=== PATIENT | female | born 1950 | race Caucasian/White ===

== ENCOUNTER 2018-01-30 20:05 | Emergency (ER) | payer MEDICARE, MEDICAID ==
[2018-01-30 20:20] VITALS: BP 127/53
[2018-01-30] MEDS ORDERED: Ondansetron 4 MG/2 ML SDV IVPUSH ONE (20:31)
--- NOTE | 2018-01-30 20:38 | EDM.PDOC ---
ED HPI GENERAL MEDICAL PROBLEM - General Chief Complaint: Gastrointestinal Problem Stated Complaint: VOMMITING BLOOD Time Seen by Provider: 01/30/18 20:21 Source of Information: Reports: Patient, Other ([place] caregiver) History Limitations: Reports: Physical Impairment (Cognitive impairment) - History of Present Illness INITIAL COMMENTS - FREE TEXT/NARRATIVE: The patient states that she has had 5 episodes of emesis today, beginning at 16: 30. Initially, there was no blood in the emesis, but later emesis had blood in it. She denies having any associated diarrhea. No abdominal pain. No chest pain , dyspnea, diaphoresis, or sense of impending doom. The patient has no other complaints. The patient denies similarly ill close contacts. No recent bad food. The patient is not on any antibiotics. No recent travel. No prior similar symptoms. The patient has not tried any home remedies for her symptoms today. The patient has a mechanical mitral valve replacement, and is on Coumadin. The patient's PCP is Dr. Patel. Right Upper Abdomen Pain Score (Numeric/FACES): 4 - Related Data Allergies Allergy/AdvReac Type Severity Reaction Status Date / Time No Known Allergies Allergy Verified 01/30/18 20:14 Home Meds: Home Meds Alendronate [Fosamax] 70 mg PO TH 06/26/15 [History] Carboxymethylcellulose Sodium [Refresh Plus 0.5%] 1 each OP BEDTIME 06/26/15 [ History] ClonazePAM [KlonoPIN] 1 mg PO QID 06/26/15 [History] Digoxin 125 mcg PO DAILY 06/26/15 [History] Enalapril [Vasotec] 2.5 mg PO DAILY 06/26/15 [History] Fluticasone [place]/ 50 Mcg. 2 spray IN DAILY 06/26/15 [History] Hydrocortisone [Hydrocortisone 1% Crm] 1 applic TOP DAILY 06/26/15 [History] Metronidazole Gel 0.075% . 1 applic TOP BID PRN 06/26/15 [History] Mineral Oil/Petrolatum,White [Refresh P.M.] 3.5 gm OP BEDTIME 06/26/15 [History] Multivit-Min/FA/Lycopene/Lut [Certavite Sr-Antioxidant Tab] 1 tab PO DAILY 06/26 [History] Sertraline [Zoloft] 100 mg PO DAILY 06/26/15 [History] Warfarin Sodium [Jantoven] 2.5 mg PO SUTUWETHSA 06/26/15 [History] Warfarin Sodium [Jantoven] 3.75 mg PO MOFR 06/26/15 [History] atorvaSTATin [Lipitor] 10 mg PO DAILY 06/26/15 [History] lamoTRIgine 25 mg PO BID 06/26/15 [History] risperiDONE 0.5 tab PO DAILY 06/26/15 [History] risperiDONE 2 mg PO BEDTIME 06/26/15 [History] Aspirin [Halfprin] 81 mg PO BRK 30 Days tab.ec 06/27/15 [Rx] Simvastatin [Zocor] 10 mg PO BEDTIME #30 tab 06/27/15 [Rx] Nitrofurantoin Monohyd/M-Cryst [Macrobid 100 mg Capsule] 1 cap PO Q12H #9 capsule 01/30/18 [Rx] Ondansetron [Zofran ODT] 1 tab PO Q8H PRN #10 tab.dis 01/30/18 [Rx] Past Medical History HEENT History: Reports: Hard of Hearing, Impaired Vision Cardiovascular History: Reports: High Cholesterol, Hypertension Musculoskeletal History: Reports: Osteoporosis Psychiatric History: Reports: Anxiety, Depression, Other (See Below) (Paranoia) - Past Surgical History Cardiovascular Surgical History: Reports: Valve Replacement (mechanical mitral) Social & Family History - Tobacco Use Smoking Status *Q: Never Smoker Second Hand Smoke Exposure: No - Caffeine Use Caffeine Use: Reports: None - Alcohol Use Alcohol Use History: No - Recreational Drug Use Recreational Drug Use: No - Living Situation & Occupation Living situation: Reports: , Other ([facility]) ED ROS GENERAL - Review of Systems Review Of Systems: ROS reveals no pertinent complaints other than HPI. ED EXAM, GI/ABD - Physical Exam Exam: See Below Exam Limited By: No Limitations General Appearance: Alert, WD/WN, No Apparent Distress Eyes: Bilateral: Normal Appearance, EOMI Ears: Normal External Exam, Hearing Grossly Normal Nose: Normal Inspection, No Blood Throat/Mouth: Normal Inspection, Normal Lips, Normal Voice, No Airway Compromise Head: Atraumatic, Normocephalic Neck: Normal Inspection, Full Range of Motion Respiratory/Chest: No Respiratory Distress, Lungs Clear, Normal Breath Sounds, No Accessory Muscle Use Cardiovascular: Normal Peripheral Pulses, Regular Rate, Rhythm, No Edema, No Gallop, No JVD, No Murmur, No Rub GI/Abdominal Exam: Normal Bowel Sounds, Soft, Non-Tender, No Organomegaly, No Distention, No Abnormal Bruit, No Mass (Female) Exam: Deferred Rectal (Female) Exam: Deferred Back Exam: Normal Inspection, Full Range of Motion, NT Extremities: Normal Range of Motion, Non-Tender, Normal Capillary Refill, Other (Scar on the dorsolateral aspect of the left foot representing a well-healed ulcer) Neurological: Alert, No Motor/Sensory Deficits, Confused Psychiatric: Normal Affect Skin Exam: Warm, Dry, Intact, Normal Color, No Rash EKG INTERPRETATION EKG Date: 01/30/18 Time: 20:52 Rhythm: NSR Rate (Beats/Min): 81 [place]: Normal P-Wave: Present QRS: Normal ST-T: Normal QT: Normal Comparison: No Change (06/26/2015) Course - Vital Signs Last Recorded V/S: Last Vital Signs Temp 36.2 C 01/30/18 20:18 Pulse 86 01/30/18 20:18 Resp 16 01/30/18 20:18 BP 127/53 L 01/30/18 20:18 Pulse Ox 93 L 01/30/18 20:18 Orthostatic Blood Pressure [ 124/60 Standing] Orthostatic Blood Pressure [ 130/61 Sitting] Orthostatic Blood Pressure [ 124/63 Supine] - Orders/Labs/Meds Orders: Active Orders 24 hr Category Date Time Status EKG Documentation Completion [RC] STAT Care 01/30/18 20:31 Active Orthostatic Vital Signs [RC] STAT Care 01/30/18 20:31 Active Orthostatic Vital Signs [RC] STAT Care 01/30/18 21:36 Active CULTURE URINE [RM] Stat Lab 01/30/18 21:00 Received UA W/MICROSCOPIC [URIN] Stat Lab 01/30/18 21:00 Ordered Sodium Chloride 0.9% [Normal Saline] 1,000 ml Med 01/30/18 20:45 Active IV ASDIRECTED Medication Orders Sodium Chloride (Normal Saline) 1,000 mls @ 100 mls/hr IV ASDIRECTED FABRICE Last Admin: 01/30/18 20:45 Dose: 100 mls/hr Labs: Laboratory Tests 01/30/18 01/30/18 01/30/18 Range/Units 20:40 20:40 20:40 WBC 14.78 H (3.98-10.04) K/mm3 RBC 4.24 (3.98-5.22) M/mm3 Hgb 12.4 (11.2-15.7) gm/L Hct 37.9 (34.1-44.9) % MCV 89.4 (79.4-94.8) fl MCH 29.2 (25.6-32.2) pg MCHC 32.7 (32.2-35.5) g/dl RDW Std Deviation 42.1 (36.4-46.3) fL Plt Count 194 (182-369) K/mm3 MPV 10.0 (9.4-12.3) fl Neutrophils % (Manual) 93 H (40-60) % Band Neutrophils % 0 (0-10) % Lymphocytes % (Manual) 2 L (20-40) % Atypical Lymphs % 0 % Monocytes % (Manual) 5 (2-10) % Eosinophils % (Manual) 0 L (0.7-5.8) % Basophils % (Manual) 0 L (0.1-1.2) Platelet Estimate Adequate Plt Morphology Comment Normal RBC Morph Comment Normal PT 38.5 H (9.5-12.1) SECONDS INR 3.62 Sodium 141 (136-145) mEq/L Potassium 3.7 (3.5-5.1) mEq/L Chloride 105 (98-107) mEq/L Carbon Dioxide 26 (21-32) mEq/L Anion Gap 13.7 (5-15) BUN 18 (7-18) mg/dL Creatinine 1.1 H (0.55-1.02) mg/dL Est Cr Clr Drug Dosing 39.79 mL/min Estimated GFR (MDRD) 50 (>60) mL/min BUN/Creatinine Ratio 16.4 (14-18) Glucose 158 H (80-115) mg/dL Calcium 9.2 (8.5-10.1) mg/dL Magnesium 1.8 (1.8-2.4) mg/dl Total Bilirubin 1.0 (0.2-1.0) mg/dL AST 19 (15-37) U/L ALT 22 (14-59) U/L Alkaline Phosphatase 43 L (46-116) U/L Troponin I < 0.017 (0.00-0.056) ng/mL Total Protein 7.8 (6.4-8.2) g/dl Albumin 3.6 (3.4-5.0) g/dl Globulin 4.2 gm/dL Albumin/Globulin Ratio 0.9 L (1-2) Urine Color (Yellow) Urine Appearance (Clear) Urine pH (5.0-8.0) Ur Specific [place] (1.005-1.030) Urine Protein (Negative) Urine Glucose (UA) (Negative) Urine Ketones (Negative) Urine Occult Blood (Negative) Urine Nitrite (Negative) Urine Bilirubin (Negative) Urine Urobilinogen (0.2-1.0) Ur Leukocyte Esterase (Negative) Urine RBC (0-5) /hpf Urine WBC (0-5) /hpf Urine WBC Clumps (NOT SEEN) /hpf Ur Epithelial Cells (0-5) /hpf Amorphous Sediment (NOT SEEN) /hpf Urine Bacteria (FEW) /hpf Urine Mucus (FEW) /hpf 01/30/18 Range/Units 21:00 WBC (3.98-10.04) K/mm3 RBC (3.98-5.22) M/mm3 Hgb (11.2-15.7) gm/L Hct (34.1-44.9) % MCV (79.4-94.8) fl MCH (25.6-32.2) pg MCHC (32.2-35.5) g/dl RDW Std Deviation (36.4-46.3) fL Plt Count (182-369) K/mm3 MPV (9.4-12.3) fl Neutrophils % (Manual) (40-60) % Band Neutrophils % (0-10) % Lymphocytes % (Manual) (20-40) % Atypical Lymphs % % Monocytes % (Manual) (2-10) % Eosinophils % (Manual) (0.7-5.8) % Basophils % (Manual) (0.1-1.2) Platelet Estimate Plt Morphology Comment RBC Morph Comment PT (9.5-12.1) SECONDS INR Sodium (136-145) mEq/L Potassium (3.5-5.1) mEq/L Chloride (98-107) mEq/L Carbon Dioxide (21-32) mEq/L Anion Gap (5-15) BUN (7-18) mg/dL Creatinine (0.55-1.02) mg/dL Est Cr Clr Drug Dosing mL/min Estimated GFR (MDRD) (>60) mL/min BUN/Creatinine Ratio (14-18) Glucose (80-115) mg/dL Calcium (8.5-10.1) mg/dL Magnesium (1.8-2.4) mg/dl Total Bilirubin (0.2-1.0) mg/dL AST (15-37) U/L ALT (14-59) U/L Alkaline Phosphatase (46-116) U/L Troponin I (0.00-0.056) ng/mL Total Protein (6.4-8.2) g/dl Albumin (3.4-5.0) g/dl Globulin gm/dL Albumin/Globulin Ratio (1-2) Urine Color Dark yellow (Yellow) Urine Appearance Slt cloudy H (Clear) Urine pH 5.5 (5.0-8.0) Ur Specific [place] > or = 1.030 (1.005-1.030) Urine Protein 1+ H (Negative) Urine Glucose (UA) Negative (Negative) Urine Ketones Negative (Negative) Urine Occult Blood 2+ H (Negative) Urine Nitrite Negative (Negative) Urine Bilirubin 1+ H (Negative) Urine Urobilinogen 0.2 (0.2-1.0) Ur Leukocyte Esterase 1+ H (Negative) Urine RBC 10-20 H (0-5) /hpf Urine WBC 30-40 H (0-5) /hpf Urine WBC Clumps Few (NOT SEEN) /hpf Ur Epithelial Cells 0-5 (0-5) /hpf Amorphous Sediment Few H (NOT SEEN) /hpf Urine Bacteria Many H (FEW) /hpf Urine Mucus Few (FEW) /hpf Meds: Medications Generic Name Dose Route Start Last Admin Trade Name Freq PRN Reason Stop Dose Admin Sodium Chloride 1,000 mls @ 100 mls/hr 01/30/18 20:45 01/30/18 20:45 Normal Saline IV 100 mls/hr ASDIRECTED FABRICE Administration Discontinued Medications Generic Name Dose Route Start Last Admin Trade Name Freq PRN Reason Stop Dose Admin Sodium Chloride 500 mls @ 1,000 mls/hr 01/30/18 21:36 Normal Saline IV 01/30/18 22:05 .BOLUS ONE Nitrofurantoin Macrocrystals 100 mg 0506/18 22:12 Macrobid PO 01/30/18 22:13 ONETIME ONE Ondansetron HCl 4 mg 01/30/18 20:31 01/30/18 20:43 Zofran IVPUSH 01/30/18 20:32 4 mg ONETIME ONE Administration - Re-Assessments/Exams Free Text/Narrative Re-Assessment/Exam: 01/30/18 21:35 The patient is orthostatic. I will order a fluid bolus, to be followed by repeat orthostatics. 01/30/18 22:13 Following 500 ml NS bolus, the patient is no longer orthostatic, and is feeling much better. The patient's urinalysis is consistent with a UTI. I have ordered a urine culture and will start the patient on Macrobid. Bactrim is relatively contraindicated, as the patient is on Coumadin. 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 I will prescribe Zofran. The patient's blood sugar was found to be elevated at 158. She likely has prediabetes. I will have her follow-up with Dr. Patel in this regard. Departure - Departure Time of Disposition: 22:25 Disposition: Home, Self-Care 01 Condition: Fair Clinical Impression: Pooja-Louise tear, UTI (urinary tract infection), Nausea & vomiting - Discharge Information Prescriptions: Nitrofurantoin Monohyd/M-Cryst [Macrobid 100 mg Capsule] 1 cap PO Q12H #9 capsule Ondansetron [Zofran ODT] 1 tab PO Q8H PRN #10 tab.dis PRN Reason: Nausea/Vomiting Instructions: Pooja-Louise Syndrome, Urinary Tract Infection, Adult Referrals: Yonatan Patel MD [Primary Care Provider] - Forms: ED Department Discharge Additional Instructions: Ms Colón was seen in the emergency room for 5 episodes of vomiting, with some blood in some of her vomit. Workup in the ER included blood work, a urinalysis, positional blood pressure checks, and an ECG. Her workup found that she was intravascularly depleted, she has a urinary tract infection, and her blood sugar was elevated at 158. Her vomiting is likely because of the urinary tract infection. After being given IV fluid, her blood pressure stabilized. She needs to stay adequately hydrated, going forward. She has been started on the antibiotic Macrobid. A prescription for Macrobid has been sent to the [facility], [address] from [facility]. She should take one tablet every 12 hours, as prescribed. She should finish the entire prescription unless told otherwise by Dr. Patel. A prescription for the anti-nausea medicine Zofran was also sent to the [facility]. She can dissolve 1 tablet on her tongue up to every 8 hours, as needed for nausea/vomiting. She is to follow-up with Dr. Patel on 02/02/2018, to check on her urine culture results, to make sure that she is on the correct antibiotic, and to check on her blood sugar. If any other problems, please do not hesitate to return Ms. Colón to the ER. - My Orders Last 24 Hours: My Active Orders 01/30/18 20:31 EKG Documentation Completion [RC] STAT Orthostatic Vital Signs [RC] STAT 01/30/18 20:45 Sodium Chloride 0.9% [Normal Saline] 1,000 ml IV ASDIRECTED 01/30/18 21:00 CULTURE URINE [RM] Stat UA W/MICROSCOPIC [URIN] Stat 01/30/18 21:36 Orthostatic Vital Signs [RC] STAT - Assessment/Plan Last 24 Hours: My Active Orders 01/30/18 20:31 EKG Documentation Completion [RC] STAT Orthostatic Vital Signs [RC] STAT 01/30/18 20:45 Sodium Chloride 0.9% [Normal Saline] 1,000 ml IV ASDIRECTED 01/30/18 21:00 CULTURE URINE [RM] Stat UA W/MICROSCOPIC [URIN] Stat 01/30/18 21:36 Orthostatic Vital Signs [RC] STAT
[2018-01-30] MEDS ORDERED: Sodium Chloride 0.9% 1,000 ML IV SCH (20:45)
[2018-01-30] MEDS ORDERED: Sodium Chloride 0.9% 500 ML IV ONE (21:36)
[2018-01-30] MEDS ORDERED: Nitrofurantoin Monohydrate/Macrocrystalline 100 MG Cap PO ONE (22:12)
== END 2018-01-30 22:52 | disposition home or self-care (01) ==
LOC: JD.ED 20:05
DX: K22.6 Gastro-esophageal laceration-hemorrhage syndrome (principal); N39.0 Urinary tract infection, site not specified; I10 Essential (primary) hypertension; F41.9 Anxiety disorder, unspecified; F32.9 Major depressive disorder, single episode, unspecified; E78.00 Pure hypercholesterolemia, unspecified; Z79.01 Long term (current) use of anticoagulants; Z79.899 Other long term (current) drug therapy
CPT/HCPCS: 36415; 80053; 81001; 83735; 84484; 85025; 85610; 87086; 87088; 87186; 93005; 96361; 96374; 99284; A9270; J2405; J7040; 93010

== ENCOUNTER 2018-02-07 19:46 | Emergency (ER) | payer MEDICARE, MEDICAID ==
[2018-02-07 20:01] VITALS: BP 113/50
[2018-02-07] MEDS ORDERED: Sodium Chloride 0.9% 10 ML Syringe FLUSH PRN (20:26)
[2018-02-07] MEDS ORDERED: Sodium Chloride 0.9% 1,000 ML IV SCH (20:30)
--- NOTE | 2018-02-07 20:30 | EDM.PDOC ---
ED HPI GENERAL MEDICAL PROBLEM - General Chief Complaint: Gastrointestinal Problem Stated Complaint: BLOOD FROM VAGINAL OR RECTAL AREA Time Seen by Provider: 02/07/18 20:11 Source of Information: Reports: Patient History Limitations: Reports: No Limitations - History of Present Illness INITIAL COMMENTS - FREE TEXT/NARRATIVE: Patient is a 67-year-old female who lives at [facility] with an employee from [employer]. Patient was evaluated January 30, 2018. Diagnosed with orthostatic vital signs administered 500 mL of fluid with resolution. UA came back positive for UTI. In addition she had a few episodes of emesis with blood present. Diagnosed with Pooja-Louise tear. She was prescribed Zofran. INR was 3.62. Since being discharged patient has been taking the Macrobid as prescribed. She continues have episodes of nausea/vomiting. No blood present. Has been using the Zofran intermittently with some relief. With taking the Macrobid she's having increased number of loose stools. Has had a poor appetite. Has at times felt weak with ambulation. This morning had blood saturating her underwear presumably from her rectum. She has no history of hemorrhoids. Denies any pain to her rectum. Denies any pain with urination. She is on Coumadin for mechanical mitral heart valve. She is on digoxin and Halfprin as well. Bilateral Upper Abdomen Pain Score (Numeric/FACES): 1 - Related Data Allergies Allergy/AdvReac Type Severity Reaction Status Date / Time No Known Allergies Allergy Verified 02/07/18 19:56 Home Meds: Home Meds Alendronate [Fosamax] 70 mg PO TH 06/26/15 [History] Carboxymethylcellulose Sodium [Refresh Plus 0.5%] 1 each OP BEDTIME 06/26/15 [ History] ClonazePAM [KlonoPIN] 1 mg PO QID 06/26/15 [History] Digoxin 125 mcg PO DAILY 06/26/15 [History] Enalapril [Vasotec] 2.5 mg PO DAILY 06/26/15 [History] Fluticasone [place]/ 50 Mcg. 2 spray IN DAILY 06/26/15 [History] Hydrocortisone [Hydrocortisone 1% Crm] 1 applic TOP DAILY 06/26/15 [History] Metronidazole Gel 0.075% . 1 applic TOP BID PRN 06/26/15 [History] Mineral Oil/Petrolatum,White [Refresh P.M.] 3.5 gm OP BEDTIME 06/26/15 [History] Multivit-Min/FA/Lycopene/Lut [Certavite Sr-Antioxidant Tab] 1 tab PO DAILY 06/26 [History] Sertraline [Zoloft] 100 mg PO DAILY 06/26/15 [History] Warfarin Sodium [Jantoven] 2.5 mg PO SUTUWETHSA 06/26/15 [History] Warfarin Sodium [Jantoven] 3.75 mg PO MOFR 06/26/15 [History] atorvaSTATin [Lipitor] 10 mg PO DAILY 06/26/15 [History] lamoTRIgine 25 mg PO BID 06/26/15 [History] risperiDONE 0.5 tab PO DAILY 06/26/15 [History] risperiDONE 2 mg PO BEDTIME 06/26/15 [History] Aspirin [Halfprin] 81 mg PO BRK 30 Days tab.ec 06/27/15 [Rx] Simvastatin [Zocor] 10 mg PO BEDTIME #30 tab 06/27/15 [Rx] Nitrofurantoin Monohyd/M-Cryst [Macrobid 100 mg Capsule] 1 cap PO Q12H #9 capsule 01/30/18 [Rx] Ondansetron [Zofran ODT] 1 tab PO Q8H PRN #10 tab.dis 01/30/18 [Rx] Past Medical History HEENT History: Reports: Hard of Hearing, Impaired Vision Cardiovascular History: Reports: High Cholesterol, Hypertension Other Cardiovascular History: Mitral valve replacement Musculoskeletal History: Reports: Osteoporosis Psychiatric History: Reports: Anxiety, Depression, Other (See Below) (Paranoia) Other Psychiatric History: paranoia Other Dermatologic History: ulcer to the left inner ankle, alf Hx Social & Family History - Caffeine Use Caffeine Use: Reports: None - Living Situation & Occupation Living situation: Reports: , Other ([facility]) ED ROS GENERAL - Review of Systems Review Of Systems: See Below Respiratory: Reports: No Symptoms Cardiovascular: Reports: No Symptoms GI/Abdominal: Reports: Abdominal Pain (RLQ), Bloody Stool, Diarrhea, Decreased Appetite, Nausea, Vomiting. Denies: Black Stool, Constipation, Hematemesis, Melena : Reports: No Symptoms Musculoskeletal: Reports: No Symptoms Skin: Reports: No Symptoms Neurological: Reports: No Symptoms Psychiatric: Reports: No Symptoms ED EXAM, GI/ABD - Physical Exam Exam: See Below Exam Limited By: No Limitations General Appearance: Alert, WD/WN, No Apparent Distress Ears: Hearing Grossly Normal Nose: Normal Inspection Throat/Mouth: Normal Inspection, Normal Oropharynx, Normal Voice, No Airway Compromise Neck: Normal Inspection, Supple Respiratory/Chest: No Respiratory Distress, Lungs Clear, Normal Breath Sounds, No Accessory Muscle Use, Chest Non-Tender Cardiovascular: Normal Peripheral Pulses, Regular Rate, Rhythm, Systolic Murmur GI/Abdominal Exam: Normal Bowel Sounds, Soft, No Organomegaly, No Distention, Tender (Along McBurney's point. Negative Doran sign.) Rectal (Female) Exam: Bloody Stool, Heme + Stool. No: Hemorrhoids Back Exam: Normal Inspection. No: CVA Tenderness (L), CVA Tenderness (R) Extremities: Non-Tender, No Pedal Edema Neurological: Alert, Oriented, CN II-XII Intact, Normal Cognition, No Motor/ Sensory Deficits Psychiatric: Normal Affect, Normal Mood Skin Exam: Warm, Dry, Intact, Normal Color Course - Vital Signs Last Recorded V/S: Last Vital Signs Temp 96.5 F 02/07/18 19:57 Pulse 111 H 02/07/18 19:57 Resp 18 02/07/18 19:57 BP 113/50 L 02/07/18 19:57 Pulse Ox 95 02/07/18 19:57 Orthostatic Blood Pressure [ 72/42 Standing] Orthostatic Blood Pressure [ 97/54 Sitting] Orthostatic Blood Pressure [ 103/49 Supine] - Orders/Labs/Meds Orders: Active Orders 24 hr Category Date Time Status EKG 12 Lead [EKG Documentation Completion] [RC] STAT Care 02/07/18 22:19 Active Orthostatic Vital Signs [RC] ASDIRECTED Care 02/07/18 20:33 Active Peripheral IV Care [RC] . DIRECTED Care 02/07/18 20:27 Active Peripheral IV Insertion Adult [OM.PC] Routine Oth 02/07/18 20:26 Ordered Transfuse Fresh Frozen Plasma [COMM] Stat Oth 02/07/18 22:46 Ordered Labs: Laboratory Tests 02/07/18 02/07/18 02/07/18 Range/Units 20:35 20:35 20:35 WBC 12.89 H (3.98-10.04) K/mm3 RBC 3.45 L (3.98-5.22) M/mm3 Hgb 9.9 L (11.2-15.7) gm/L Hct 28.9 L (34.1-44.9) % MCV 83.8 (79.4-94.8) fl MCH 28.7 (25.6-32.2) pg MCHC 34.3 (32.2-35.5) g/dl RDW Std Deviation 39.4 (36.4-46.3) fL Plt Count 287 (182-369) K/mm3 MPV 9.4 (9.4-12.3) fl Neutrophils % (Manual) 83 H (40-60) % Band Neutrophils % 0 (0-10) % Lymphocytes % (Manual) 12 L (20-40) % Atypical Lymphs % 0 % Monocytes % (Manual) 4 (2-10) % Eosinophils % (Manual) 0 L (0.7-5.8) % Basophils % (Manual) 1 (0.1-1.2) Toxic Granulation 2+ moderate Platelet Estimate Adequate Plt Morphology Comment Normal Hypochromasia 1+ slight Poikilocytosis 2+ moderate Anisocytosis 2+ moderate Microcytosis 1+ slight RBC Morph Comment Not Reportable PT (9.5-12.1) SECONDS INR APTT (24-31) SECONDS Sodium 134 L (136-145) mEq/L Potassium 2.3 L* (3.5-5.1) mEq/L Chloride 100 (98-107) mEq/L Carbon Dioxide 23 (21-32) mEq/L Anion Gap 13.3 (5-15) BUN 31 H (7-18) mg/dL Creatinine 1.4 H (0.55-1.02) mg/dL Est Cr Clr Drug Dosing 31.26 mL/min Estimated GFR (MDRD) 38 (>60) mL/min BUN/Creatinine Ratio 22.1 H (14-18) Glucose 185 H (80-115) mg/dL Calcium 8.2 L (8.5-10.1) mg/dL Magnesium 1.7 L (1.8-2.4) mg/dl Total Bilirubin 0.5 (0.2-1.0) mg/dL AST 34 (15-37) U/L ALT 31 (14-59) U/L Alkaline Phosphatase 57 (46-116) U/L C-Reactive Protein 9.1 H* (<1.0) mg/dL Total Protein 7.2 (6.4-8.2) g/dl Albumin 2.9 L (3.4-5.0) g/dl Globulin 4.3 gm/dL Albumin/Globulin Ratio 0.7 L (1-2) Blood Type Gel Antibody Screen 02/07/18 02/07/18 02/07/18 Range/Units 20:35 22:05 22:05 WBC (3.98-10.04) K/mm3 RBC (3.98-5.22) M/mm3 Hgb (11.2-15.7) gm/L Hct (34.1-44.9) % MCV (79.4-94.8) fl MCH (25.6-32.2) pg MCHC (32.2-35.5) g/dl RDW Std Deviation (36.4-46.3) fL Plt Count (182-369) K/mm3 MPV (9.4-12.3) fl Neutrophils % (Manual) (40-60) % Band Neutrophils % (0-10) % Lymphocytes % (Manual) (20-40) % Atypical Lymphs % % Monocytes % (Manual) (2-10) % Eosinophils % (Manual) (0.7-5.8) % Basophils % (Manual) (0.1-1.2) Toxic Granulation Platelet Estimate Plt Morphology Comment Hypochromasia Poikilocytosis Anisocytosis Microcytosis RBC Morph Comment PT > 90.0 H* (9.5-12.1) SECONDS INR TNP APTT > 139 H* (24-31) SECONDS Sodium (136-145) mEq/L Potassium (3.5-5.1) mEq/L Chloride (98-107) mEq/L Carbon Dioxide (21-32) mEq/L Anion Gap (5-15) BUN (7-18) mg/dL Creatinine (0.55-1.02) mg/dL Est Cr Clr Drug Dosing mL/min Estimated GFR (MDRD) (>60) mL/min BUN/Creatinine Ratio (14-18) Glucose (80-115) mg/dL Calcium (8.5-10.1) mg/dL Magnesium (1.8-2.4) mg/dl Total Bilirubin (0.2-1.0) mg/dL AST (15-37) U/L ALT (14-59) U/L Alkaline Phosphatase (46-116) U/L C-Reactive Protein (<1.0) mg/dL Total Protein (6.4-8.2) g/dl Albumin (3.4-5.0) g/dl Globulin gm/dL Albumin/Globulin Ratio (1-2) Blood Type O POSITIVE Gel Antibody Screen Negative Meds: Medications Discontinued Medications Generic Name Dose Route Start Last Admin Trade Name Freq PRN Reason Stop Dose Admin Diatrizoate Meglum/Diatrizoate Sod 90 ml 02/07/18 22:52 02/07/18 22:53 Gastrografin 37% PO 02/07/18 22:53 Not Given ONETIME ONE Sodium Chloride 1,000 mls @ 125 mls/hr 02/07/18 20:30 02/07/18 20:45 Normal Saline IV 125 mls/hr ASDIRECTED FABRICE Administration Sodium Chloride 500 mls @ 999 mls/hr 02/07/18 20:58 02/07/18 21:29 Normal Saline IV 02/07/18 21:28 999 mls/hr .BOLUS ONE Administration Potassium Chloride 10 meq/ 100 mls @ 100 mls/hr 02/07/18 22:18 02/07/18 22:53 Premix IV 02/07/18 23:17 100 mls/hr ASDIRECTED ONE Administration Potassium Chloride 10 meq/ 100 mls @ 100 mls/hr 02/07/18 22:18 02/08/18 00:04 Premix IV 02/07/18 23:17 100 mls/hr ASDIRECTED ONE Administration Magnesium Sulfate 2 gm/ Premix 50 mls @ 100 mls/hr 02/07/18 23:09 02/07/18 23 :19 IV 02/07/18 23:38 100 mls/hr ONETIME ONE Administration Pantoprazole Sodium 80 mg/ 100 mls @ 10 mls/hr 02/07/18 23:59 02/08/18 00:13 Sodium Chloride IV 02/08/18 09:58 8 mg/hr ONETIME ONE 10 mls/hr Administration 8 MG/HR Iopamidol 100 ml 02/07/18 22:52 02/07/18 22:54 Isovue-370 (76%) IVPUSH 02/07/18 22:53 100 ml ONETIME ONE Administration Ondansetron HCl 4 mg 02/07/18 21:13 02/07/18 21:28 Zofran IVPUSH 02/07/18 21:14 4 mg ONETIME ONE Administration Pantoprazole Sodium 80 mg 02/08/18 22:38 Protonix PO 02/08/18 22:39 DAILY ONE Pantoprazole Sodium 80 mg 02/07/18 22:38 02/07/18 22:55 Protonix PO 02/07/18 22:39 80 mg DAILY ONE Administration Phytonadione 5 mg 02/07/18 22:45 02/07/18 22:59 Aquamephyton PO 02/07/18 22:46 5 mg ONETIME ONE Administration Potassium Chloride 40 meq 02/07/18 22:18 Potassium Chloride PO 02/07/18 22:19 ONETIME ONE Potassium Chloride 40 meq 02/07/18 22:40 02/07/18 22:55 Klor-Con M20 PO 02/07/18 22:41 40 meq ONETIME ONE Administration Sodium Chloride 10 ml 02/07/18 20:26 02/07/18 20:45 Saline Flush FLUSH 10 ml ASDIRECTED PRN Administration Keep Vein Open - Re-Assessments/Exams Free Text/Narrative Re-Assessment/Exam: IV established with normal saline. Initial labs and studies include CBC, chem 14, CRP, PTT/INR, UA, magnesium, and stool wbc's. Patient having pain along mcburneys point with palpation. Has had significant amount of diarrhea with also blood in her stool as of today. I ordered a CT the abdomen and pelvis with IV and oral contrast. If renal function is poor Will go ahead with oral only. 2049 Orthostatic vital signs were positive. With standing patient's blood pressure was 72/42 with a heart rate of 105. With lying blood pressure is 103/ 49 with a heart rate 95. I ordered normal saline 500 mL bolus. 2112 per nursing staff patient became nauseated with starting the oral contrast. On examination patient has lisha red blood from the rectum. Unclear if this is from a hemorrhoid or not. No pain on examination. Hemoccult test was positive. Patient unable to drink all the oral contrast. Labs reviewed: White blood cell count 12.9, hemoglobin 9.9, platelet count 287, neutrophil percent is 83 with no left shift, sodium 134, potassium 2.3, AG 13.3 , BUN 31, creatinine 1.4, glucose 185, magnesium low 1.7, and CRP 9.1. Last HGB level was 12.4 January 30, 2018. 2220 Do not have a PTT/INR level back yet. I have called lab. They had to redraw it. They will call with results. I have ordered potassium 40 mEq by mouth and also 20 mEq IV. In addition ordered protonix 80 mg PO single dose. Suspect lower GI bleed but with history of emesis with blood and on coumadin will treat with prilosec as well. Mag 2 grams IV ordered as well. EKG sinus rhythm at a rate 84 with OK interval 167 and a QTC is prolonged at 524. No acute ST changes noted. CT the abdomen and pelvis is pending. 2222 I did speak with Dr. Rivera correctional officer sergeant General Surgeon. Recommends sending patient to [place]. Patient is a full code. 02/07/18 22:46 Lab has called back. PT >90 unable to run INR. Ordered vitamin K plus 2 units of FFP. 2nd IV will be established. 02/07/18 22:50 Called [facility] with No answer. 02/07/18 23:45 [facility] has called and provided report. CT abdomen/pelvis IMPRESSION : 1. Sigmoid colon is very redundant, looping up into the right upper quadrant. Within the proximal sigmoid colon, located within the left lower quadrant just past the junction with the descending colon, there is questionable suggestion of an endophytic mass measuring 2.3 x 1.3 x 1.7 cm versus an apparent piece of stool (2:69 and sagittal image 62). Given history of hematochezia, consider correlation with colonoscopy to exclude neoplasm. 2. Indeterminate subcentimeter hepatic hypodensities. 2345 Called [facility] and spoke with Dr. Brooks correctional officer sergeant hospitalists. He has accepted the patient. Requests protonix gtt be started. Ambulance notified and all transfer paperwork completed. Patient remained stable throughout her E.D. visit. BP upon discharge 102/s with HR 80's. 02/08/18 20:56 Departure - Departure Time of Disposition: 21:00 Disposition: DC/Tfer to Acute Hospital 02 Condition: Fair Clinical Impression: Lower gastrointestinal bleed, Low serum magnesium level, Low serum potassium level, H/O mitral valve replacement Diarrhea Qualifiers: Diarrhea type: unspecified type Qualified Code(s): R19.7 - Diarrhea, unspecified Anemia Qualifiers: Anemia type: other cause Other causes of anemia: acute posthemorrhagic Qualified Code(s): D62 - Acute posthemorrhagic anemia - Discharge Information Referrals: Cathy Jain NP [Ordering Only Provider] - Forms: ED Department Discharge - My Orders Last 24 Hours: My Active Orders 02/07/18 20:26 Peripheral IV Insertion Adult [OM.PC] Routine 02/07/18 20:27 Peripheral IV Care [RC] . DIRECTED 02/07/18 20:33 Orthostatic Vital Signs [RC] ASDIRECTED 02/07/18 22:19 EKG 12 Lead [EKG Documentation Completion] [RC] STAT 02/07/18 22:46 Transfuse Fresh Frozen Plasma [COMM] Stat - Assessment/Plan Last 24 Hours: My Active Orders 02/07/18 20:26 Peripheral IV Insertion Adult [OM.PC] Routine 02/07/18 20:27 Peripheral IV Care [RC] . DIRECTED 02/07/18 20:33 Orthostatic Vital Signs [RC] ASDIRECTED 02/07/18 22:19 EKG 12 Lead [EKG Documentation Completion] [RC] STAT 02/07/18 22:46 Transfuse Fresh Frozen Plasma [COMM] Stat
[2018-02-07] MEDS ORDERED: Sodium Chloride 0.9% 500 ML IV ONE (20:58)
[2018-02-07] MEDS ORDERED: Ondansetron 4 MG/2 ML SDV IVPUSH ONE (21:13)
[2018-02-07] MEDS ORDERED: Potassium Chloride 10% 20 MEQ/15 ML Soln 30 ML UD Cup PO ONE (22:18)
[2018-02-07] MEDS ORDERED: Potassium Chloride 10 MEQ in Premix Bag 1 BAG IV ONE ×4 (22:18)
[2018-02-07] MEDS ORDERED: Pantoprazole 40 MG Tab.CR PO ONE (22:38)
[2018-02-07] MEDS ORDERED: Potassium Chloride 20 MEQ Tab.ER PO ONE (22:40)
[2018-02-07] MEDS ORDERED: Phytonadione ORAL 2.5mg/2.5ml Soln Simple Syrup U/D PO ONE (22:45)
[2018-02-07] MEDS ORDERED: Diatrizoate Meglumine/Diatrizoate Sodium 37% 120 ML Bottle PO ONE (22:52)
[2018-02-07] MEDS ORDERED: Iopamidol 755 Mg/ML 100 ML Bottle IVPUSH ONE (22:52)
[2018-02-07] MEDS ORDERED: Magnesium Sulfate/Water 2 GM in Premix Bag 1 BAG IV ONE (23:09)
[2018-02-07] MEDS ORDERED: Pantoprazole 80 MG in Sodium Chloride 0.9% 100 ML IV ONE (23:59)
--- NOTE | 2018-02-08 07:38 | CT ---
CT abdomen and pelvis Technique: Multiple axial sections were obtained from above the dome of the diaphragm inferiorly through the pubic symphysis. Intravenous and oral contrast was given. Delayed images were also obtained through the abdomen and pelvis. Findings: Visualized lung bases show nothing acute. Two small low density lesions are seen measuring less than 1 cm within the right lobe of the liver which are felt compatible with small cysts. Spleen appears within normal limits. Soft tissue nodule is noted between the stomach and spleen which is felt compatible with a small amount of accessory splenic tissue. Pancreas appears within normal limits. Gallbladder contains no calcified gallstones. Aorta shows no aneurysmal dilatation with mild atherosclerotic change. No retroperitoneal adenopathy is seen. No mesenteric abnormalities are noted. Fluid is seen within portions of the sigmoid colon as well as scattered fluid and stool within the colon. Mildly dilated air-filled colon is also noted. Redundant sigmoid colon is present. Appendix is seen and is normal in size. No free fluid or inflammatory change is seen. Bone window settings were reviewed which show mild degenerative change primarily within the lower apophyseal joints within the lumbar spine. Impression: 1. Gas dilated colon as well as redundant sigmoid colon. Scattered areas of fluid are seen within the colon and scattered stool is seen. Preliminary report by [employer] mentions a possible intraluminal mass which I believe is most likely due to stool although given the history of hematochezia I believe previous recommendation of endoscopy should be performed. 2. Other incidental findings. Diagnostic code #3 Agree with preliminary report issued by [facility] ([facility] preliminary report dictated on 02/08/18, 12:44 AM Central Time)
[2018-02-08] MEDS ORDERED: Pantoprazole 40 MG Tab.CR PO ONE (22:38)
== END 2018-02-08 01:00 ==
LOC: JD.ED 19:46
DX: K92.2 Gastrointestinal hemorrhage, unspecified (principal); E83.42 Hypomagnesemia; E87.6 Hypokalemia; I10 Essential (primary) hypertension; E78.00 Pure hypercholesterolemia, unspecified; F41.9 Anxiety disorder, unspecified; F32.9 Major depressive disorder, single episode, unspecified; Z79.899 Other long term (current) drug therapy; Z79.01 Long term (current) use of anticoagulants; Z79.82 Long term (current) use of aspirin
CPT/HCPCS: 36415; 36430; 74177; 80053; 83735; 85007; 85027; 85610; 85730; 86140; 86850; 86900; 86901; 93005; 96361; 96365; 96366; 96368; 96375; 99285; A9270; C9113; J2405; J3480; J7030; J7040; J7050; P9017; Q9963; Q9967; J3475

== ENCOUNTER 2018-02-14 12:11 | Emergency (ER) | payer MEDICARE, MEDICAID ==
[2018-02-14 12:51] VITALS: BP 92/57
[2018-02-14] MEDS ORDERED: Sodium Chloride 0.9% 1,000 ML IV ONE ×2 (12:53→14:44)
[2018-02-14] MEDS ORDERED: Sodium Chloride 0.9% 10 ML Syringe FLUSH PRN (12:54)
--- NOTE | 2018-02-14 13:21 | EDM.PDOC ---
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 Patient was seen in the ER on February 07, 2018. She was diagnosed with a GI bleed and sent to [facility] for further management care. Reportedly she did well. She did have a colonoscopy and was diagnosed with ischemic colitis. She was given 1 unit unit of blood while in [place]. She is currently on Coumadin for a mitral valve. This was stopped during her stay. She is currently on Lovenox and on Coumadin. She had an IRN check today which was 2. She is supposed follow-up with her primary care provider, Dr. Patel, this week. Patient presents with an Able improvement spec. Reports she did well over the weekend but this morning they noticed bloody stools. She had 2 episodes of diarrhea today and bloody stools twice. She reports that she does not feel well. Her able improvement spec feels that she is unsteady and shaky. She is not having vomiting and no syncope. She reports abdominal pain located in the umbilical area. Denies any chest pain or shortness of breath. Patient is developmentally delayed and not able to provide much additional history. Abdominal Pain Score (Numeric/FACES): 1 - Related Data Allergies Allergy/AdvReac Type Severity Reaction Status Date / Time No Known Allergies Allergy Verified 02/14/18 12:47 Home Meds: Home Meds Alendronate [Fosamax] 70 mg PO ASDIRECTED 06/26/15 [History] Carboxymethylcellulose Sodium [Refresh Plus 0.5%] 1 drop EYEBOTH TID 06/26/15 [ History] ClonazePAM [KlonoPIN] 1 mg PO TID 06/26/15 [History] Digoxin 125 mcg PO DAILY 06/26/15 [History] Enalapril [Vasotec] 2.5 mg PO DAILY 06/26/15 [History] Fluticasone [place]/ 50 Mcg. 2 spray IN DAILY 06/26/15 [History] Hydrocortisone [Hydrocortisone 1% Crm] 1 applic TOP DAILY 06/26/15 [History] Metronidazole Gel 0.075% . 1 applic TOP BID PRN 06/26/15 [History] Mineral Oil/Petrolatum,White [Refresh P.M.] 3.5 gm OP BEDTIME 06/26/15 [History] Multivit-Min/FA/Lycopene/Lut [Certavite Sr-Antioxidant Tab] 1 tab PO DAILY 06/26 [History] Sertraline [Zoloft] 100 mg PO DAILY 06/26/15 [History] Warfarin Sodium [Jantoven] 2.5 mg PO SUTUWETHFRSA 06/26/15 [History] Warfarin Sodium [Jantoven] 3.75 mg PO MO 06/26/15 [History] atorvaSTATin [Lipitor] 40 mg PO DAILY 06/26/15 [History] lamoTRIgine 25 mg PO BID 06/26/15 [History] risperiDONE 0.5 tab PO DAILY 06/26/15 [History] risperiDONE 2 mg PO BEDTIME 06/26/15 [History] Aspirin [Halfprin] 81 mg PO BRK 30 Days tab.ec 06/27/15 [Rx] Ondansetron [Zofran ODT] 1 tab PO Q8H PRN #10 tab.dis 01/30/18 [Rx] Pantoprazole Sodium [Protonix] 40 mg PO DAILY 02/14/18 [History] Past Medical History HEENT History: Reports: Hard of Hearing, Impaired Vision Cardiovascular History: Reports: High Cholesterol, Hypertension Other Cardiovascular History: Mitral valve replacement Musculoskeletal History: Reports: Osteoporosis Psychiatric History: Reports: Anxiety, Depression, Other (See Below) Other Psychiatric History: paranoia Other Dermatologic History: ulcer to the left inner ankle, group home Hx Social & Family History - Tobacco Use Smoking Status *Q: Never Smoker - Caffeine Use Caffeine Use: Reports: None - Living Situation & Occupation Living situation: Reports: , Other ([facility]) ED ROS GENERAL - Review of Systems Review Of Systems: See Below Constitutional: Reports: Malaise, Weakness Respiratory: Denies: Shortness of Breath Cardiovascular: Denies: Chest Pain, Lightheadedness, Syncope GI/Abdominal: Reports: Abdominal Pain, Bloody Stool, Diarrhea. Denies: Vomiting Neurological: Denies: Syncope ED EXAM, GI/ABD - Physical Exam Exam: See Below Exam Limited By: No Limitations General Appearance: Alert, WD/WN, No Apparent Distress Nose: Normal Inspection Throat/Mouth: Normal Inspection, Normal Voice, No Airway Compromise Neck: Normal Inspection Respiratory/Chest: No Respiratory Distress, Lungs Clear, Normal Breath Sounds Cardiovascular: Tachycardia, Systolic Murmur GI/Abdominal Exam: Normal Bowel Sounds, Soft, Non-Tender Rectal (Female) Exam: Normal Rectal Tone, Heme + Stool. No: Hemorrhoids Neurological: Alert, Oriented Psychiatric: Normal Affect, Normal Mood Skin Exam: Warm, Dry, Normal Color Course - Vital Signs Last Recorded V/S: Last Vital Signs Temp 36.6 C 02/14/18 12:48 Pulse 110 H 02/14/18 12:48 Resp BP 92/57 L 02/14/18 12:48 Pulse Ox 96 02/14/18 12:48 Orthostatic Blood Pressure [ 90/50 Standing] Orthostatic Blood Pressure [ 95/51 Sitting] Orthostatic Blood Pressure [ 97/50 Supine] - Orders/Labs/Meds Orders: Active Orders 24 hr Category Date Time Status Cardiac Monitoring [RC] . DIRECTED Care 02/14/18 12:53 Active Orthostatic Vital Signs [RC] ASDIRECTED Care 02/14/18 12:53 Active Peripheral IV Care [RC] . DIRECTED Care 02/14/18 12:54 Active Peripheral IV Insertion Adult [OM.PC] Routine Oth 02/14/18 12:54 Ordered Labs: Laboratory Tests 02/14/18 02/14/18 02/14/18 Range/Units 12:58 12:58 12:58 WBC 12.08 H (3.98-10.04) K/mm3 RBC 3.19 L (3.98-5.22) M/mm3 Hgb 9.2 L (11.2-15.7) gm/L Hct 28.4 L (34.1-44.9) % MCV 89.0 (79.4-94.8) fl MCH 28.8 (25.6-32.2) pg MCHC 32.4 (32.2-35.5) g/dl RDW Std Deviation 46.8 H (36.4-46.3) fL Plt Count 254 (182-369) K/mm3 MPV 9.0 L (9.4-12.3) fl Neutrophils % (Manual) 81 H (40-60) % Band Neutrophils % 5 (0-10) % Lymphocytes % (Manual) 12 L (20-40) % Monocytes % (Manual) 2 (2-10) % Eosinophils % (Manual) 0 L (0.7-5.8) % Basophils % (Manual) 0 L (0.1-1.2) Platelet Estimate Adequate Polychromasia 1+ slight Anisocytosis 1+ slight RBC Morph Comment Not Reportable PT 21.0 H (9.5-12.1) SECONDS INR 1.95 APTT 42 H (24-31) SECONDS Sodium 143 (136-145) mEq/L Potassium 2.7 L (3.5-5.1) mEq/L Chloride 104 (98-107) mEq/L Carbon Dioxide 31 (21-32) mEq/L Anion Gap 10.7 (5-15) BUN 9 (7-18) mg/dL Creatinine 0.8 (0.55-1.02) mg/dL Est Cr Clr Drug Dosing 57.22 mL/min Estimated GFR (MDRD) > 60 (>60) mL/min BUN/Creatinine Ratio 11.3 L (14-18) Glucose 109 (80-115) mg/dL Calcium 8.2 L (8.5-10.1) mg/dL Magnesium 1.3 L (1.8-2.4) mg/dl Total Bilirubin 0.6 (0.2-1.0) mg/dL AST 33 (15-37) U/L ALT 25 (14-59) U/L Alkaline Phosphatase 41 L (46-116) U/L Total Protein 6.1 L (6.4-8.2) g/dl Albumin 2.6 L (3.4-5.0) g/dl Globulin 3.5 gm/dL Albumin/Globulin Ratio 0.7 L (1-2) Blood Type Gel Antibody Screen 02/14/18 Range/Units 12:58 WBC (3.98-10.04) K/mm3 RBC (3.98-5.22) M/mm3 Hgb (11.2-15.7) gm/L Hct (34.1-44.9) % MCV (79.4-94.8) fl MCH (25.6-32.2) pg MCHC (32.2-35.5) g/dl RDW Std Deviation (36.4-46.3) fL Plt Count (182-369) K/mm3 MPV (9.4-12.3) fl Neutrophils % (Manual) (40-60) % Band Neutrophils % (0-10) % Lymphocytes % (Manual) (20-40) % Monocytes % (Manual) (2-10) % Eosinophils % (Manual) (0.7-5.8) % Basophils % (Manual) (0.1-1.2) Platelet Estimate Polychromasia Anisocytosis RBC Morph Comment PT (9.5-12.1) SECONDS INR APTT (24-31) SECONDS Sodium (136-145) mEq/L Potassium (3.5-5.1) mEq/L Chloride (98-107) mEq/L Carbon Dioxide (21-32) mEq/L Anion Gap (5-15) BUN (7-18) mg/dL Creatinine (0.55-1.02) mg/dL Est Cr Clr Drug Dosing mL/min Estimated GFR (MDRD) (>60) mL/min BUN/Creatinine Ratio (14-18) Glucose (80-115) mg/dL Calcium (8.5-10.1) mg/dL Magnesium (1.8-2.4) mg/dl Total Bilirubin (0.2-1.0) mg/dL AST (15-37) U/L ALT (14-59) U/L Alkaline Phosphatase (46-116) U/L Total Protein (6.4-8.2) g/dl Albumin (3.4-5.0) g/dl Globulin gm/dL Albumin/Globulin Ratio (1-2) Blood Type O POSITIVE Gel Antibody Screen Negative Meds: Medications Discontinued Medications Generic Name Dose Route Start Last Admin Trade Name Freq PRN Reason Stop Dose Admin Sodium Chloride 1,000 mls @ 999 mls/hr 02/14/18 12:53 02/14/18 13:15 Normal Saline IV 02/14/18 13:53 999 mls/hr ONETIME ONE Administration Magnesium Sulfate 2 gm/ Premix 50 mls @ 25 mls/hr 02/14/18 14:14 02/14/18 14: 37 IV 02/14/18 16:13 25 mls/hr ONETIME ONE Administration Sodium Chloride 1,000 mls @ 150 mls/hr 02/14/18 14:44 02/14/18 15:14 Normal Saline IV 02/14/18 21:23 150 mls/hr ONETIME ONE Administration Sodium Chloride 500 mls @ 999 mls/hr 02/14/18 15:14 Normal Saline IV 02/14/18 15:44 .BOLUS ONE Pantoprazole Sodium 80 mg/ 100 mls @ 10 mls/hr 02/14/18 15:15 02/14/18 16:10 Sodium Chloride IV 02/15/18 01:14 8 mg/hr ONETIME ONE 10 mls/hr Administration 8 MG/HR Potassium Chloride 10 meq/ 100 mls @ 100 mls/hr 02/14/18 15:30 02/14/18 15:38 Premix IV 100 mls/hr ASDIRECTED FABRICE Administration Pantoprazole Sodium 40 mg 02/14/18 14:14 02/14/18 14:34 Protonix Iv IVPUSH 02/14/18 14:15 40 mg ONETIME ONE Administration Sodium Chloride 10 ml 02/14/18 12:54 02/14/18 13:15 Saline Flush FLUSH 10 ml ASDIRECTED PRN Administration Keep Vein Open - Re-Assessments/Exams Free Text/Narrative Re-Assessment/Exam: 02/14/18 15:25 Patient had a bloody stool while in the ER. I spoke with Dr. Romano, he has concerns if surgical intervention is required and recommended transfer to [place]. 02/14/18 15:43 Spoke with GI and hospitalist, Dr. Brooks, at [facility] in [place]. Will start a protonix drip. Dr. Brooks accepts the patient. As long as she remains stable en route she will be a direct admission. If she declines she will need to go through the ER. Patient will go by ambulance to [facility] in [place]. Departure - Departure Time of Disposition: 16:00 Disposition: DC/Tfer to Acute Hospital 02 Condition: Serious Clinical Impression: Low serum magnesium level, Low serum potassium level, Lower gastrointestinal bleed, Ischemic colitis Anemia Qualifiers: Anemia type: other cause Other causes of anemia: acute posthemorrhagic Qualified Code(s): D62 - Acute posthemorrhagic anemia - Discharge Information Referrals: Yonatan Patel MD [Primary Care Provider] - Forms: ED Department Discharge - My Orders Last 24 Hours: My Active Orders 02/14/18 12:53 Cardiac Monitoring [RC] . DIRECTED Orthostatic Vital Signs [RC] ASDIRECTED 02/14/18 12:54 Peripheral IV Care [RC] . DIRECTED Peripheral IV Insertion Adult [OM.PC] Routine - Assessment/Plan Last 24 Hours: My Active Orders 02/14/18 12:53 Cardiac Monitoring [RC] . DIRECTED Orthostatic Vital Signs [RC] ASDIRECTED 02/14/18 12:54 Peripheral IV Care [RC] . DIRECTED Peripheral IV Insertion Adult [OM.PC] Routine
[2018-02-14] MEDS ORDERED: Magnesium Sulfate/Water 2 GM in Premix Bag 1 BAG IV ONE (14:14)
[2018-02-14] MEDS ORDERED: Pantoprazole 40 MG Vial IVPUSH ONE (14:14)
[2018-02-14] MEDS ORDERED: Sodium Chloride 0.9% 500 ML IV ONE (15:14)
[2018-02-14] MEDS ORDERED: Pantoprazole 80 MG in Sodium Chloride 0.9% 100 ML IV ONE (15:15)
[2018-02-14] MEDS ORDERED: Potassium Chloride 10 MEQ in Premix Bag 1 BAG IV SCH (15:30)
== END 2018-02-14 16:35 ==
LOC: JD.ED 12:11
DX: K92.1 Melena (principal); D62 Acute posthemorrhagic anemia; E87.6 Hypokalemia; E83.42 Hypomagnesemia; I10 Essential (primary) hypertension; F41.9 Anxiety disorder, unspecified; F32.9 Major depressive disorder, single episode, unspecified; Z79.01 Long term (current) use of anticoagulants; Z79.899 Other long term (current) drug therapy; Z79.82 Long term (current) use of aspirin; E78.00 Pure hypercholesterolemia, unspecified
CPT/HCPCS: 36415; 80053; 83735; 85007; 85027; 85610; 85730; 86850; 86900; 86901; 96361; 96365; 96366; 96368; 96375; 99285; C9113; J3480; J7030; J7040; J7050; J3475

== ENCOUNTER 2018-05-11 18:16 | Emergency (ER) | payer MEDICARE, MEDICAID ==
[2018-05-11 18:26] VITALS: BP 145/55
[2018-05-11] MEDS ORDERED: Sodium Chloride 0.9% 500 ML IV ONE (18:31)
[2018-05-11] MEDS ORDERED: Sodium Chloride 0.9% 10 ML Syringe FLUSH PRN (18:31)
--- NOTE | 2018-05-11 19:37 | EDM.PDOC ---
ED HPI GENERAL MEDICAL PROBLEM - General Chief Complaint: Neuro Symptoms/Deficits Stated Complaint: STROKE SYMPTOMS Time Seen by Provider: 05/11/18 18:21 Source of Information: Reports: Patient, RN Notes Reviewed - History of Present Illness INITIAL COMMENTS - FREE TEXT/NARRATIVE: 67-year-old female has been brought in for evaluation of possible stroke or TIA. She is an ABLE patient. Staff member noticed this afternoon that she had some very mild weakness of her left hand and arm compared to the right. Also this afternoon she has been "less talkative than usual and walking about less than usual". On arrival to the ED she is in no apparent distress. Stroke alert was called. Upon exam no acute neuro deficit apparent. She had excellent bilateral hand grasp, does well with [id number] testing and can lift her legs are equally strong off the cot left and right. There is no facial droop or speech difficulty. She denies headache or chest pain. - Related Data Allergies Allergy/AdvReac Type Severity Reaction Status Date / Time No Known Allergies Allergy Verified 02/14/18 12:47 Home Meds: Home Meds Alendronate [Fosamax] 70 mg PO ASDIRECTED 06/26/15 [History] Carboxymethylcellulose Sodium [Refresh Plus 0.5%] 1 drop EYEBOTH TID 06/26/15 [ History] ClonazePAM [KlonoPIN] 1 mg PO TID 06/26/15 [History] Digoxin 125 mcg PO DAILY 06/26/15 [History] Enalapril [Vasotec] 2.5 mg PO DAILY 06/26/15 [History] Fluticasone [place]/ 50 Mcg. 2 spray IN DAILY 06/26/15 [History] Hydrocortisone [Hydrocortisone 1% Crm] 1 applic TOP DAILY 06/26/15 [History] Metronidazole Gel 0.075% . 1 applic TOP BID PRN 06/26/15 [History] Mineral Oil/Petrolatum,White [Refresh P.M.] 3.5 gm OP BEDTIME 06/26/15 [History] Multivit-Min/FA/Lycopene/Lut [Certavite Sr-Antioxidant Tab] 1 tab PO DAILY 06/26 [History] Sertraline [Zoloft] 100 mg PO DAILY 06/26/15 [History] Warfarin Sodium [Jantoven] 2.5 mg PO SUTUWETHFRSA 06/26/15 [History] Warfarin Sodium [Jantoven] 3.75 mg PO MO 06/26/15 [History] atorvaSTATin [Lipitor] 40 mg PO DAILY 06/26/15 [History] lamoTRIgine 25 mg PO BID 06/26/15 [History] risperiDONE 0.5 tab PO DAILY 06/26/15 [History] risperiDONE 2 mg PO BEDTIME 06/26/15 [History] Aspirin [Halfprin] 81 mg PO BRK 30 Days tab.ec 06/27/15 [Rx] Ondansetron [Zofran ODT] 1 tab PO Q8H PRN #10 tab.dis 01/30/18 [Rx] Pantoprazole Sodium [Protonix] 40 mg PO DAILY 02/14/18 [History] Past Medical History HEENT History: Reports: Hard of Hearing, Impaired Vision Cardiovascular History: Reports: High Cholesterol, Hypertension Other Cardiovascular History: Mitral valve replacement Gastrointestinal History: Reports: Other (See Below) Other Gastrointestinal History: stomach ulcer Musculoskeletal History: Reports: Osteoporosis Neurological History: Reports: CVA, TIA Other Neuro History: ischemic Psychiatric History: Reports: Anxiety, Depression, Other (See Below) Other Psychiatric History: paranoia, mild intellectual disabilities, psychotic disorder Other Dermatologic History: ulcer to the left inner ankle, [facility] Hx Social & Family History - Tobacco Use Smoking Status *Q: Never Smoker - Caffeine Use Caffeine Use: Reports: Coffee - Recreational Drug Use Recreational Drug Use: No - Living Situation & Occupation Living situation: Reports: , Other ([facility]) ED ROS GENERAL - Review of Systems Review Of Systems: See Below Constitutional: Denies: Fever HEENT: Denies: Throat Pain Respiratory: Denies: Shortness of Breath Cardiovascular: Denies: Chest Pain GI/Abdominal: Denies: Abdominal Pain, Nausea, Vomiting : Reports: No Symptoms Musculoskeletal: Denies: Back Pain Skin: Reports: No Symptoms Neurological: Reports: Dizziness (Mild, gone), Weakness (Question of weakness left hand and arm this past afternoon, gone). Denies: Headache, Numbness, Tingling, Trouble Speaking, Difficulty Walking ED EXAM, NEURO - Physical Exam Exam: See Below General Appearance: Alert, No Apparent Distress Eye Exam: Bilateral Eye: PERRL Throat/Mouth: Normal Inspection, Normal Oropharynx Head Exam: Atraumatic. No: Facial Swelling Neck: Supple, Full Range of Motion, Other Respiratory/Chest: No Respiratory Distress (No JVD), Lungs Clear, Normal Breath Sounds Cardiovascular: Regular Rate, Rhythm GI/Abdominal: Soft, Non-Tender Neurological: Alert, No Motor/Sensory Deficits, Other (Finger to nose testing normal at this time) Back Exam: No: CVA Tenderness (L), CVA Tenderness (R) Extremities: Normal Inspection, Normal Range of Motion. No: Pedal Edema, Leg Pain Skin Exam: Warm, Dry, Normal Color EKG INTERPRETATION EKG Date: 05/11/18 Rhythm: NSR P-Wave: Present QRS: Normal ST-T: Normal QT: Normal Course - Vital Signs Last Recorded V/S: Last Vital Signs Temp 97.6 F 05/11/18 18:21 Pulse 74 05/11/18 18:21 Resp 16 05/11/18 18:21 BP 145/55 H 05/11/18 18:21 Pulse Ox 93 L 05/11/18 18:21 - Orders/Labs/Meds Orders: Active Orders 24 hr Category Date Time Status EKG 12 Lead [EKG Documentation Completion] [RC] STAT Care 05/11/18 18:31 Active Insert [place] Catheter [Insert Urinary Catheter] [OM.PC] Care 05/11/18 19:20 Ordered Stat Peripheral IV Care [RC] . DIRECTED Care 05/11/18 18:32 Active Urinary Catheter Assessment [RC] ASDIRECTED Care 05/11/18 19:20 Active Head wo Cont [CT] Stat Exams 05/11/18 18:31 Taken UA W/MICROSCOPIC [URIN] Stat Lab 05/11/18 19:25 Ordered Sodium Chloride 0.9% [Saline Flush] Med 05/11/18 18:31 Active 10 ml FLUSH ASDIRECTED PRN Peripheral IV Insertion Adult [OM.PC] Stat Oth 05/11/18 18:31 Ordered Medication Orders Sodium Chloride (Saline Flush) 10 ml FLUSH ASDIRECTED PRN PRN Reason: Keep Vein Open Last Admin: 05/11/18 18:35 Dose: 10 ml Labs: Laboratory Tests 05/11/18 05/11/18 05/11/18 Range/Units 18:31 18:35 18:35 WBC 4.75 (3.98-10.04) K/mm3 RBC 4.28 (3.98-5.22) M/mm3 Hgb 12.1 (11.2-15.7) gm/L Hct 37.6 (34.1-44.9) % MCV 87.9 (79.4-94.8) fl MCH 28.3 (25.6-32.2) pg MCHC 32.2 (32.2-35.5) g/dl RDW Std Deviation 41.2 (36.4-46.3) fL Plt Count 184 (182-369) K/mm3 MPV 9.6 (9.4-12.3) fl Neut % (Auto) 60.9 (34.0-71.1) % Lymph % (Auto) 25.5 (19.3-51.7) % [place] % (Auto) 10.5 (4.7-12.5) % Eos % (Auto) 2.5 (0.7-5.8) Baso % (Auto) 0.4 (0.1-1.2) % Neut # (Auto) 2.89 (1.56-6.13) K/mm3 Lymph # (Auto) 1.21 (1.18-3.74) K/mm3 [place] # (Auto) 0.50 H (0.24-0.36) K/mm3 Eos # (Auto) 0.12 (0.04-0.36) K/mm3 Baso # (Auto) 0.02 (0.01-0.08) K/mm3 PT 25.4 H (9.5-12.1) SECONDS INR 2.37 Sodium (136-145) mEq/L Potassium (3.5-5.1) mEq/L Chloride (98-107) mEq/L Carbon Dioxide (21-32) mEq/L Anion Gap (5-15) BUN (7-18) mg/dL Creatinine (0.55-1.02) mg/dL Est Cr Clr Drug Dosing mL/min Estimated GFR (MDRD) (>60) mL/min BUN/Creatinine Ratio (14-18) Glucose (80-115) mg/dL POC Glucose 81 (80-115) mg/dL Calcium (8.5-10.1) mg/dL Total Bilirubin (0.2-1.0) mg/dL AST (15-37) U/L ALT (14-59) U/L Alkaline Phosphatase (46-116) U/L Total Protein (6.4-8.2) g/dl Albumin (3.4-5.0) g/dl Globulin gm/dL Albumin/Globulin Ratio (1-2) Urine Color (Yellow) Urine Appearance (Clear) Urine pH (5.0-8.0) Ur Specific [place] (1.005-1.030) Urine Protein (Negative) Urine Glucose (UA) (Negative) Urine Ketones (Negative) Urine Occult Blood (Negative) Urine Nitrite (Negative) Urine Bilirubin (Negative) Urine Urobilinogen (0.2-1.0) Ur Leukocyte Esterase (Negative) Urine RBC (0-5) /hpf Urine WBC (0-5) /hpf Ur Epithelial Cells (0-5) /hpf Urine Bacteria (FEW) /hpf Urine Mucus (FEW) /hpf 05/11/18 05/11/18 Range/Units 18:35 19:25 WBC (3.98-10.04) K/mm3 RBC (3.98-5.22) M/mm3 Hgb (11.2-15.7) gm/L Hct (34.1-44.9) % MCV (79.4-94.8) fl MCH (25.6-32.2) pg MCHC (32.2-35.5) g/dl RDW Std Deviation (36.4-46.3) fL Plt Count (182-369) K/mm3 MPV (9.4-12.3) fl Neut % (Auto) (34.0-71.1) % Lymph % (Auto) (19.3-51.7) % [place] % (Auto) (4.7-12.5) % Eos % (Auto) (0.7-5.8) Baso % (Auto) (0.1-1.2) % Neut # (Auto) (1.56-6.13) K/mm3 Lymph # (Auto) (1.18-3.74) K/mm3 [place] # (Auto) (0.24-0.36) K/mm3 Eos # (Auto) (0.04-0.36) K/mm3 Baso # (Auto) (0.01-0.08) K/mm3 PT (9.5-12.1) SECONDS INR Sodium 140 (136-145) mEq/L Potassium 3.9 (3.5-5.1) mEq/L Chloride 104 (98-107) mEq/L Carbon Dioxide 28 (21-32) mEq/L Anion Gap 11.9 (5-15) BUN 13 (7-18) mg/dL Creatinine 0.9 (0.55-1.02) mg/dL Est Cr Clr Drug Dosing 50.86 mL/min Estimated GFR (MDRD) > 60 (>60) mL/min BUN/Creatinine Ratio 14.4 (14-18) Glucose 95 (80-115) mg/dL POC Glucose (80-115) mg/dL Calcium 8.8 (8.5-10.1) mg/dL Total Bilirubin 0.7 (0.2-1.0) mg/dL AST 22 (15-37) U/L ALT 19 (14-59) U/L Alkaline Phosphatase 48 (46-116) U/L Total Protein 7.8 (6.4-8.2) g/dl Albumin 3.5 (3.4-5.0) g/dl Globulin 4.3 gm/dL Albumin/Globulin Ratio 0.8 L (1-2) Urine Color Yellow (Yellow) Urine Appearance Clear (Clear) Urine pH 6.5 (5.0-8.0) Ur Specific [place] 1.010 (1.005-1.030) Urine Protein Negative (Negative) Urine Glucose (UA) Negative (Negative) Urine Ketones Negative (Negative) Urine Occult Blood Negative (Negative) Urine Nitrite Negative (Negative) Urine Bilirubin Negative (Negative) Urine Urobilinogen 0.2 (0.2-1.0) Ur Leukocyte Esterase Negative (Negative) Urine RBC 0-5 (0-5) /hpf Urine WBC 0-5 (0-5) /hpf Ur Epithelial Cells Not seen (0-5) /hpf Urine Bacteria Occasional (FEW) /hpf Urine Mucus Not seen (FEW) /hpf Meds: Medications Generic Name Dose Route Start Last Admin Trade Name Freq PRN Reason Stop Dose Admin Sodium Chloride 10 ml 05/11/18 18:31 05/11/18 18:35 Saline Flush FLUSH 10 ml ASDIRECTED PRN Administration Keep Vein Open Discontinued Medications Generic Name Dose Route Start Last Admin Trade Name Freq PRN Reason Stop Dose Admin Sodium Chloride 500 mls @ 999 mls/hr 05/11/18 18:31 05/11/18 19:04 Normal Saline IV 05/11/18 19:01 999 mls/hr .BOLUS ONE Administration - Re-Assessments/Exams Free Text/Narrative Re-Assessment/Exam: 05/11/18 19:[address] shows no sign of hemorrhage, there are some small chronic lacunar infarcts right thalamus, no acute findings, see Radiology report for details. Departure - Departure Time of Disposition: 20:01 Disposition: Home, Self-Care 01 Condition: Fair Clinical Impression: Weakness - Discharge Information Referrals: Yonatan Patel MD [Primary Care Provider] - Forms: ED Department Discharge Additional Instructions: Continue current medications, continue to drink plenty of water to maintain hydration. Follow-up clinic as needed. Return to ED as needed if symptoms worsening in any way. - My Orders Last 24 Hours: My Active Orders 05/11/18 18:31 EKG 12 Lead [EKG Documentation Completion] [RC] STAT Head wo Cont [CT] Stat Sodium Chloride 0.9% [Saline Flush] 10 ml FLUSH ASDIRECTED PRN Peripheral IV Insertion Adult [OM.PC] Stat 05/11/18 18:32 Peripheral IV Care [RC] . DIRECTED 05/11/18 19:20 Insert Downey Catheter [Insert Urinary Catheter] [OM.PC] Stat Urinary Catheter Assessment [RC] ASDIRECTED 05/11/18 19:25 UA W/MICROSCOPIC [URIN] Stat - Assessment/Plan Last 24 Hours: My Active Orders 05/11/18 18:31 EKG 12 Lead [EKG Documentation Completion] [RC] STAT Head wo Cont [CT] Stat Sodium Chloride 0.9% [Saline Flush] 10 ml FLUSH ASDIRECTED PRN Peripheral IV Insertion Adult [OM.PC] Stat 05/11/18 18:32 Peripheral IV Care [RC] . DIRECTED 05/11/18 19:20 Insert [place] Catheter [Insert Urinary Catheter] [OM.PC] Stat Urinary Catheter Assessment [RC] ASDIRECTED 05/11/18 19:25 UA W/MICROSCOPIC [URIN] Stat
--- NOTE | 2018-05-12 11:03 | CT ---
Head CT Technique: Multiple axial sections through the brain were obtained. Intravenous contrast was not utilized. Comparison: Prior head CT exam of 06/26/15. Findings: Ventricles along with basal cisterns and sulci over the convexities are mildly prominent. Old lacunar infarcts are noted within the left basal ganglia and within the right thalamus. Minimal diminished density is noted within portions of the periventricular white matter compatible with slight small vessel ischemic demyelination change. No other abnormal parenchymal densities are seen. No evidence of intracranial hemorrhage. No midline shift or mass effect is seen. Bone window settings were reviewed which show no acute calvarial abnormality. Visualized sinuses are clear. Impression: 1. Senescent change as noted above. No acute intracranial abnormality is appreciated. No significant change is seen from previous study. Diagnostic code #2 I agree with preliminary report issued by [facility] ([facility] report finalized on 05/11/18, 7:54 PM Central Time)
== END 2018-05-11 20:15 | disposition home or self-care (01) ==
LOC: JD.ED 18:16
DX: R53.1 Weakness (principal); I10 Essential (primary) hypertension; E78.00 Pure hypercholesterolemia, unspecified; F41.9 Anxiety disorder, unspecified; F32.9 Major depressive disorder, single episode, unspecified; Z79.01 Long term (current) use of anticoagulants; Z79.82 Long term (current) use of aspirin; Z79.899 Other long term (current) drug therapy
CPT/HCPCS: 36415; 70450; 80053; 81001; 82962; 85025; 85610; 93005; 96360; 99285; J7040; J7050

== ENCOUNTER 2019-02-06 08:09 | Emergency (ER) | payer MEDICARE, MEDICAID ==
[2019-02-06 08:28] VITALS: BP 119/75
--- NOTE | 2019-02-06 09:31 | EDM.PDOC ---
ED HPI GENERAL MEDICAL PROBLEM - General Chief Complaint: ENT Problem Stated Complaint: NOSEBLEED Time Seen by Provider: 02/06/19 08:37 Source of Information: Reports: Patient, RN Notes Reviewed - History of Present Illness INITIAL COMMENTS - FREE TEXT/NARRATIVE: 68-year-old female comes in with right nosebleed. This started upon awakening this morning 1-2 hours ago. Still mild bleeding on arrival to ED right nares. She is on Coumadin. She takes that in the evening so has not yet taken that today. She does have history of prior nosebleeds but nothing real recent. No chest pain or difficulty breathing. - Related Data Allergies Allergy/AdvReac Type Severity Reaction Status Date / Time No Known Allergies Allergy Verified 02/06/19 08:22 Home Meds: Home Meds Alendronate [Fosamax] 70 mg PO ASDIRECTED 06/26/15 [History] Carboxymethylcellulose Sodium [Refresh Plus 0.5%] 1 drop EYEBOTH TID 06/26/15 [ History] ClonazePAM [KlonoPIN] 1 mg PO TID 06/26/15 [History] Digoxin 125 mcg PO DAILY 06/26/15 [History] Fluticasone [place]/ 50 Mcg. 2 spray IN DAILY 06/26/15 [History] Hydrocortisone [Hydrocortisone 1% Crm] 1 applic TOP DAILY 06/26/15 [History] Metronidazole Gel 0.075% . 1 applic TOP BID PRN 06/26/15 [History] Multivit-Min/FA/Lycopene/Lut [Certavite Sr-Antioxidant Tab] 1 tab PO DAILY 06/26 [History] Sertraline [Zoloft] 100 mg PO DAILY 06/26/15 [History] atorvaSTATin [Lipitor] 40 mg PO DAILY 06/26/15 [History] lamoTRIgine 25 mg PO BID 06/26/15 [History] risperiDONE 0.5 tab PO DAILY 06/26/15 [History] risperiDONE 2 mg PO BEDTIME 06/26/15 [History] Aspirin [Halfprin] 81 mg PO BRK 30 Days tab.ec 06/27/15 [Rx] Ondansetron [Zofran ODT] 1 tab PO Q8H PRN #10 tab.dis 01/30/18 [Rx] Pantoprazole Sodium [Protonix] 40 mg PO DAILY 02/14/18 [History] Calcium Carbonate [Calcium] 600 mg PO BID 02/06/19 [History] Cholecalciferol (Vitamin D3) [Vitamin D3] 1,000 unit PO BID 02/06/19 [History] Hypromellose [Systane Gel] 10 gm OP BEDTIME 02/06/19 [History] Potassium Chloride 20 meq PO DAILY 02/06/19 [History] Warfarin Sodium [Jantoven] 2.5 mg PO BEDTIME 02/06/19 [History] Past Medical History HEENT History: Reports: Hard of Hearing, Impaired Vision Cardiovascular History: Reports: High Cholesterol, Hypertension Other Cardiovascular History: Mitral valve replacement Respiratory History: Reports: None Gastrointestinal History: Reports: Other (See Below) Other Gastrointestinal History: stomach ulcer Genitourinary History: Reports: None 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 Musculoskeletal History: Reports: Osteoporosis Neurological History: Reports: CVA, TIA Other Neuro History: ischemic Psychiatric History: Reports: Anxiety, Depression, Other (See Below) Other Psychiatric History: paranoia, mild intellectual disabilities, psychotic disorder Endocrine/Metabolic History: Reports: None Hematologic History: Reports: None Immunologic History: Reports: None Oncologic (Cancer) History: Reports: None Other Dermatologic History: ulcer to the left inner ankle, nursing home Hx - Infectious Disease History Infectious Disease History: Reports: None - Past Surgical History Female Surgical History: Reports: None Social & Family History - Family History Family Medical History: Noncontributory - Tobacco Use Smoking Status *Q: Never Smoker - Caffeine Use Caffeine Use: Reports: Coffee, Tea - Recreational Drug Use Recreational Drug Use: No - Living Situation & Occupation Living situation: Reports: , Other ([facility]) ED ROS ENT - Review of Systems Review Of Systems: See Below Constitutional: Reports: No Symptoms HEENT: Reports: Nosebleed Respiratory: Denies: Shortness of Breath, Hemoptysis GI/Abdominal: Denies: Abdominal Pain, Nausea, Vomiting Musculoskeletal: Reports: No Symptoms Skin: Reports: No Symptoms Neurological: Reports: No Symptoms ED EXAM, ENT - Physical Exam Exam: See Below General Appearance: Alert, No Apparent Distress Nose: Other (Patient has the nose pincher on on my arrival see patient, not actively bleeding at that time) Mouth/Throat: Normal Inspection Head: Atraumatic Neck: Supple Respiratory/Chest: No Respiratory Distress, Lungs Clear Cardiovascular: Tachycardia Extremities: Normal Inspection, Normal Range of Motion Skin: Warm, Dry, Normal Color ED ENT PROCEDURES - Epistaxis Procedure Recent anticoagulants/antiplatlets: Yes Uncontrolled HTN: No Site of bleeding: Right Nare Clearing of clots: Patient Blew Nose Topical Meds: Topical Cocaine Chemical cautery: Silver Nitrate Topical (small bleeder R septum cauterized, no further bleeding) Course - Vital Signs Last Recorded V/S: Last Vital Signs Temp 98.2 F 02/06/19 08:26 Pulse 110 H 02/06/19 08:26 Resp 14 02/06/19 08:26 BP 119/75 02/06/19 08:26 Pulse Ox 96 02/06/19 08:26 - Orders/Labs/Meds Labs: Laboratory Tests 02/06/19 02/06/19 Range/Units 09:06 09:06 WBC 6.31 (3.98-10.04) K/mm3 RBC 4.03 (3.98-5.22) M/mm3 Hgb 12.2 (11.2-15.7) gm/L Hct 36.1 (34.1-44.9) % MCV 89.6 (79.4-94.8) fl MCH 30.3 (25.6-32.2) pg MCHC 33.8 (32.2-35.5) g/dl RDW Std Deviation 42.9 (36.4-46.3) fL Plt Count 168 L (182-369) K/mm3 MPV 9.5 (9.4-12.3) fl Neut % (Auto) 79.1 H (34.0-71.1) % Lymph % (Auto) 12.0 L (19.3-51.7) % [place] % (Auto) 6.5 (4.7-12.5) % Eos % (Auto) 2.1 (0.7-5.8) Baso % (Auto) 0.3 (0.1-1.2) % Neut # (Auto) 4.99 (1.56-6.13) K/mm3 Lymph # (Auto) 0.76 L (1.18-3.74) K/mm3 [place] # (Auto) 0.41 H (0.24-0.36) K/mm3 Eos # (Auto) 0.13 (0.04-0.36) K/mm3 Baso # (Auto) 0.02 (0.01-0.08) K/mm3 PT 28.2 H (9.5-12.1) SECONDS INR 2.64 Meds: Medications Discontinued Medications Generic Name Dose Route Start Last Admin Trade Name Susan PRN Reason Stop Dose Admin Cocaine HCl 4 ml 02/06/19 08:56 02/06/19 09:05 Cocaine Hcl TOP 02/06/19 08:57 4 ml ONETIME ONE Administration - Re-Assessments/Exams Free Text/Narrative Re-Assessment/Exam: 02/06/19 10:52 INR 2.64, bleeding stopped after silver nitrate cautery small bleeder R septum. Departure - Departure Time of Disposition: 10:36 Disposition: Home, Self-Care 01 Condition: Fair Clinical Impression: Epistaxis - Discharge Information Instructions: Nosebleed, [id number] Referrals: Yonatan Patel MD [Primary Care Provider] - Forms: ED Department Discharge Additional Instructions: Rest, try not to blow nose today or tomorrow, pressure if needed for any further bleeding, take your Coumadin tonight or tomorrow evening. He may resume that Wednesday and continue current dosage as prescribed. Small amount of Vaseline to distal nose twice daily for the next 3 days. Return to ED as needed for any further bleeding that will not stop with 10-15 minutes of pressure.
== END 2019-02-06 10:53 | disposition home or self-care (01) ==
LOC: JD.ED 08:09
DX: R04.0 Epistaxis (principal); I10 Essential (primary) hypertension; Z86.73 Personal history of transient ischemic attack (TIA), and cerebral infarction without residual deficits; Z79.01 Long term (current) use of anticoagulants; Z79.82 Long term (current) use of aspirin; Z79.899 Other long term (current) drug therapy; F41.9 Anxiety disorder, unspecified; F32.9 Major depressive disorder, single episode, unspecified
CPT/HCPCS: 30901; 36415; 85025; 85610; 99282; 99283

== ENCOUNTER 2019-10-15 09:23 | Emergency (ER) | payer MEDICARE, MEDICAID ==
[2019-10-15 09:47] VITALS: BP 140/59; PULSE 75
[2019-10-15] MEDS ORDERED: Oxymetazoline 0.05% Nasal Spray 30 ML Bottle NAS ONE (09:58)
--- NOTE | 2019-10-15 10:14 | EDM.PDOC ---
ED HPI GENERAL MEDICAL PROBLEM - General Chief Complaint: ENT Problem Stated Complaint: NOSE BLEED Time Seen by Provider: 10/15/19 09:44 Source of Information: Reports: Patient, RN Notes Reviewed, Other ([facility] staff) - History of Present Illness INITIAL COMMENTS - FREE TEXT/NARRATIVE: 69 year old female comes in with R sided nosebleed. This started about 2 1/2 hrs ago. There has continued to be slow oozing R nare despite pressure. She is on coumadin chronically. Has not been running down the back of her throat. Hx of prior nosebleeds. - Related Data Allergies Allergy/AdvReac Type Severity Reaction Status Date / Time No Known Allergies Allergy Verified 10/15/19 09:47 Home Meds: Home Meds Alendronate [Fosamax] 70 mg PO ASDIRECTED 06/26/15 [History] Carboxymethylcellulose Sodium [Refresh Plus 0.5%] 1 drop EYEBOTH TID 06/26/15 [ History] ClonazePAM [KlonoPIN] 1 mg PO TID 06/26/15 [History] Digoxin 125 mcg PO DAILY 06/26/15 [History] Fluticasone [place]/ 50 Mcg. 2 spray IN DAILY 06/26/15 [History] Hydrocortisone [Hydrocortisone 1% Crm] 1 applic TOP DAILY 06/26/15 [History] Metronidazole Gel 0.075% . 1 applic TOP BID PRN 06/26/15 [History] Multivit-Min/FA/Lycopen/Lutein [Certavite Sr-Antioxidant Tab] 1 tab PO DAILY [History] Sertraline [Zoloft] 100 mg PO DAILY 06/26/15 [History] atorvaSTATin [Lipitor] 40 mg PO DAILY 06/26/15 [History] lamoTRIgine 25 mg PO BID 06/26/15 [History] risperiDONE 0.5 tab PO DAILY 06/26/15 [History] risperiDONE 2 mg PO BEDTIME 06/26/15 [History] Aspirin [Halfprin] 81 mg PO BRK 30 Days tab.ec 06/27/15 [Rx] Ondansetron [Zofran ODT] 1 tab PO Q8H PRN #10 tab.dis 01/30/18 [Rx] Pantoprazole Sodium [Protonix] 40 mg PO DAILY 02/14/18 [History] Calcium Carbonate [Calcium] 600 mg PO BID 02/06/19 [History] Cholecalciferol (Vitamin D3) [Vitamin D3] 1,000 unit PO BID 02/06/19 [History] Hypromellose [Systane Gel] 10 gm OP BEDTIME 02/06/19 [History] Potassium Chloride 20 meq PO DAILY 02/06/19 [History] Warfarin Sodium [Jantoven] 2.5 mg PO BEDTIME 02/06/19 [History] Past Medical History HEENT History: Reports: Hard of Hearing, Impaired Vision Cardiovascular History: Reports: High Cholesterol, Hypertension Other Cardiovascular History: Mitral valve replacement Respiratory History: Reports: None Gastrointestinal History: Reports: Other (See Below) Other Gastrointestinal History: stomach ulcer Genitourinary History: Reports: None 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 Musculoskeletal History: Reports: Osteoporosis Neurological History: Reports: CVA, TIA Other Neuro History: ischemic Psychiatric History: Reports: Anxiety, Depression, Other (See Below) Other Psychiatric History: paranoia, mild intellectual disabilities, psychotic disorder Endocrine/Metabolic History: Reports: None Hematologic History: Reports: None Immunologic History: Reports: None Oncologic (Cancer) History: Reports: None Other Dermatologic History: 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 Denies: Rhinitis, Sinus Problem Respiratory: Denies: Shortness of Breath, Cough Cardiovascular: Denies: Chest Pain GI/Abdominal: Denies: Abdominal Pain, Vomiting Musculoskeletal: Reports: No Symptoms Skin: Reports: No Symptoms ED EXAM, ENT - Physical Exam Exam: See Below General Appearance: Alert, No Apparent Distress Eye Exam: Bilateral Eye: PERRL Nose: Active Bleeding (very mild oozing of blood R nares) Mouth/Throat: Normal Inspection Head: Atraumatic Neck: Supple Respiratory/Chest: No Respiratory Distress, Lungs Clear Cardiovascular: Regular Rate, Rhythm Extremities: Normal Inspection Neurological: Alert, No Motor/Sensory Deficits Skin: Warm, Dry, Normal Color ED ENT PROCEDURES - Epistaxis Procedure Indication: Epistaxis Recent anticoagulants/antiplatlets: Yes Uncontrolled HTN: No Recent septal/nasal surgery: No Site of bleeding: Right Nare Topical Meds: Topical Cocaine Chemical cautery: Silver Nitrate Topical Course - Vital Signs Last Recorded V/S: Last Vital Signs Temp 97.4 F 10/15/19 09:44 Pulse 75 10/15/19 09:44 Resp 18 10/15/19 09:44 BP 140/59 L 10/15/19 09:44 Pulse Ox 98 10/15/19 09:44 - Orders/Labs/Meds Labs: Laboratory Tests 10/15/19 10/15/19 Range/Units 10:15 10:15 WBC 6.38 (3.98-10.04) K/mm3 RBC 4.01 (3.98-5.22) M/mm3 Hgb 11.6 (11.2-15.7) gm/dl Hct 37.3 (34.1-44.9) % MCV 93.0 (79.4-94.8) fl MCH 28.9 (25.6-32.2) pg MCHC 31.1 L (32.2-35.5) g/dl RDW Std Deviation 43.7 (36.4-46.3) fL Plt Count 177 L (182-369) K/mm3 MPV 9.6 (9.4-12.3) fl Neut % (Auto) 76.8 H (34.0-71.1) % Lymph % (Auto) 12.5 L (19.3-51.7) % [place] % (Auto) 8.3 (4.7-12.5) % Eos % (Auto) 2.0 (0.7-5.8) Baso % (Auto) 0.2 (0.1-1.2) % Neut # (Auto) 4.90 (1.56-6.13) K/mm3 Lymph # (Auto) 0.80 L (1.18-3.74) K/mm3 [place] # (Auto) 0.53 H (0.24-0.36) K/mm3 Eos # (Auto) 0.13 (0.04-0.36) K/mm3 Baso # (Auto) 0.01 (0.01-0.08) K/mm3 PT 36.1 H (9.7-12.0) SECONDS INR 3.56 Meds: Medications Discontinued Medications Generic Name Dose Route Start Last Admin Trade Name Susan PRN Reason Stop Dose Admin Cocaine HCl 4 ml 10/15/19 09:58 10/15/19 10:04 Cocaine Hcl TOP 10/15/19 09:59 4 ml ONETIME ONE Administration Oxymetazoline HCl 2 ml 10/15/19 09:58 10/15/19 10:04 Nasal Decongestant [place] CLAUS 10/15/19 09:59 2 ml ONETIME ONE Administration - Re-Assessments/Exams Free Text/Narrative Re-Assessment/Exam: 10/15/19 15:05 No further bleeding after cauterization. INR is very mildly elevated at about 3.6. Discharge instructions as documented Departure - Departure Time of Disposition: 11:13 Disposition: Home, Self-Care 01 Condition: Fair Clinical Impression: Epistaxis - Discharge Information Instructions: Nosebleed, [id number] Referrals: PCP,Unknown [Primary Care Provider] - Forms: ED Department Discharge Additional Instructions: Try avoid blowing nose as best you can. Hold the coumadin tonight and tomorrow. Resume the coumadin Wednesday if no significant further bleeding. Vaseline or antibioitic ointment distal nose 2 times daily. Return to ED as needed. Sepsis Event Note - Evaluation Sepsis Screening Result: No Definite Risk - Focused Exam Vital Signs: Vital Signs Temp Pulse Resp BP Pulse Ox 10/15/19 09:44 97.4 F 75 18 140/59 L 98 Date Exam was Performed: 10/15/19 Time Exam was Performed: 15:05
== END 2019-10-15 11:21 | disposition home or self-care (01) ==
LOC: JD.ED 09:23
DX: R04.0 Epistaxis (principal); I10 Essential (primary) hypertension; F41.9 Anxiety disorder, unspecified; F32.9 Major depressive disorder, single episode, unspecified; Z95.4 Presence of other heart-valve replacement; Z79.82 Long term (current) use of aspirin; Z79.899 Other long term (current) drug therapy; Z79.01 Long term (current) use of anticoagulants; Z86.73 Personal history of transient ischemic attack (TIA), and cerebral infarction without residual deficits
CPT/HCPCS: 30901; 36415; 85025; 85610; 99283; A9270; 99282

== ENCOUNTER 2020-10-29 08:57 | Emergency (ER) | payer MEDICARE, MEDICAID ==
[2020-10-29 09:15] VITALS: BP 129/64; PULSE 97
[2020-10-29] MEDS ORDERED: Lidocaine 1% with EPINEPHrine 1:100,000 10 ML MDV INJECT ONE (09:26)
[2020-10-29] MEDS ORDERED: Oxymetazoline 0.05% Nasal Spray 30 ML Bottle NAS ONE (09:26)
[2020-10-29] MEDS ORDERED: Tranexamic Acid 1,000 MG in Sodium Chloride 0.9% 100 ML IV SCH (09:30)
--- NOTE | 2020-10-29 09:31 | EDM.PDOC ---
ED HPI GENERAL MEDICAL PROBLEM - General Chief Complaint: ENT Problem Stated Complaint: NOSE BLEED Time Seen by Provider: 10/29/20 09:08 Source of Information: Reports: Patient History Limitations: Reports: Other (Patient is a resident of [facility] she is noncommunicative) - History of Present Illness INITIAL COMMENTS - FREE TEXT/NARRATIVE: 70-year-old female presents to the emergency department complaints of nosebleed to the right naris. Patient is chronically on Coumadin and does have a history of nosebleeds with this with ER visits. [facility] staff reports that the nosebleed started at about 730 this morning and they were not able to get it to stop with holding pressure alone. Chest Pain Score (Numeric/FACES): 9 - Related Data Allergies Allergy/AdvReac Type Severity Reaction Status Date / Time No Known Allergies Allergy Verified 10/29/20 09:15 Home Meds: Home Meds Alendronate [Fosamax] 70 mg PO ASDIRECTED 06/26/15 [History] Carboxymethylcellulose Sodium [Refresh Plus 0.5%] 1 drop EYEBOTH TID 06/26/15 [History] ClonazePAM [KlonoPIN] 1 mg PO TID 06/26/15 [History] Digoxin 125 mcg PO DAILY 06/26/15 [History] Fluticasone [place]/ 50 Mcg. 2 spray IN DAILY 06/26/15 [History] Hydrocortisone [Hydrocortisone 1% Crm] 1 applic TOP DAILY 06/26/15 [History] Metronidazole Gel 0.075% . 1 applic TOP BID PRN 06/26/15 [History] Multivit-Min/FA/Lycopen/Lutein [Certavite [place] Tablet] 1 tab PO DAILY 06/26/15 [History] Sertraline [Zoloft] 100 mg PO DAILY 06/26/15 [History] atorvaSTATin [Lipitor] 40 mg PO DAILY 06/26/15 [History] lamoTRIgine 25 mg PO BID 06/26/15 [History] risperiDONE 0.5 tab PO DAILY 06/26/15 [History] risperiDONE 2 mg PO BEDTIME 06/26/15 [History] Aspirin [Halfprin] 81 mg PO BRK 30 Days tab.ec 06/27/15 [Rx] Ondansetron [Zofran ODT] 1 tab PO Q8H PRN #10 tab.dis 01/30/18 [Rx] Pantoprazole Sodium [Protonix] 40 mg PO DAILY 02/14/18 [History] Calcium Carbonate [Calcium] 600 mg PO BID 02/06/19 [History] Cholecalciferol (Vitamin D3) [Vitamin D3] 1,000 unit PO BID 02/06/19 [History] Hypromellose [Systane Gel] 10 gm OP BEDTIME 02/06/19 [History] Potassium Chloride 20 meq PO DAILY 02/06/19 [History] Warfarin Sodium [Jantoven] 2.5 mg PO BEDTIME 02/06/19 [History] Warfarin Sodium [Jantoven] 1.25 mg PO DAILY #1 tablet 10/29/20 [Rx] Past Medical History HEENT History: Reports: Epistaxis, Hard of Hearing, Impaired Vision Cardiovascular History: Reports: High Cholesterol, Hypertension Other Cardiovascular History: Mitral valve replacement Respiratory History: Reports: None Gastrointestinal History: Reports: Other (See Below) Other Gastrointestinal History: stomach ulcer Genitourinary History: Reports: None 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 Musculoskeletal History: Reports: Osteoporosis Neurological History: Reports: CVA, TIA Other Neuro History: ischemic Psychiatric History: Reports: Anxiety, Depression, Other (See Below) Other Psychiatric History: paranoia, mild intellectual disabilities, psychotic disorder Endocrine/Metabolic History: Reports: None Hematologic History: Reports: None Immunologic History: Reports: None Oncologic (Cancer) History: Reports: None Other Dermatologic History: ulcer to the left inner ankle, [facility] Hx - Infectious Disease History Infectious Disease History: Reports: None - Past Surgical History Cardiovascular Surgical History: Reports: Valve Replacement Female Surgical History: Reports: None Social & Family History - Family History Family Medical History: No Pertinent Family History - Tobacco Use Tobacco Use Status *Q: Never Tobacco User Second Hand Smoke Exposure: No - Caffeine Use Caffeine Use: Reports: None - Recreational Drug Use Recreational Drug Use: No - Living Situation & Occupation Living situation: Reports: , Other ([facility]) ED ROS ENT - Review of Systems Review Of Systems: Comprehensive ROS is negative, except as noted in HPI. ED EXAM, ENT - Physical Exam Exam: See Below Exam Limited By: No Limitations General Appearance: Alert, WD/WN, No Apparent Distress Eye Exam: Bilateral Eye: PERRL Ears: Hearing Grossly Normal Nose: Normal Inspection, Active Bleeding Mouth/Throat: Normal Inspection, Normal Gums, Normal Lips, Normal Oropharynx, Normal Teeth Head: Atraumatic, Normocephalic Neck: Normal Inspection, Supple, Non-Tender, Full Range of Motion Respiratory/Chest: No Respiratory Distress, Lungs Clear, Normal Breath Sounds, No Accessory Muscle Use, Chest Non-Tender Cardiovascular: Normal Peripheral Pulses, Regular Rate, Rhythm, No Murmur GI/Abdominal: Normal Bowel Sounds, Soft, Non-Tender (Female) Exam: Deferred Rectal (Female) Exam: Deferred Back: Normal Inspection, Full Range of Motion Extremities: Normal Inspection, Normal Range of Motion, Non-Tender, No Pedal Edema, Normal Capillary Refill Neurological: Alert, Oriented Psychiatric: Normal Affect, Normal Mood Skin: Warm, Dry, Intact, Normal Color, No Rash Lymphatic: No Adenopathy Course - Vital Signs Text/Narrative:: At the time of exam nursing staff is holding a gauze and pressure on the patient's right nares. I attempted to visualize the bleed however it is oozing too much so I have ordered 2 cc of Afrin, 2 cc of lidocaine with epi, and 2 cc of TXA. We will soak this on a gauze and inserted into the nares to see if we can get the bleeding to stop so that I can examine the patient. I have also ordered CBC and a PT/INR as the patient is chronically on Coumadin. Last Recorded V/S: Last Vital Signs Temp 98.2 F 10/29/20 09:11 Pulse 97 10/29/20 09:11 Resp 20 10/29/20 09:11 BP 129/64 10/29/20 09:11 Pulse Ox 95 10/29/20 09:11 - Orders/Labs/Meds Orders: Active Orders 24 hr Category Date Time Status Tranexamic Acid [Cyklokapron] 1,000 mg Med 10/29/20 09:30 Active Sodium Chloride 0.9% [Normal Saline] 100 ml IV ONETIME Medication Orders Tranexamic Acid 1,000 mg/ (Sodium Chloride) 110 mls @ 400 mls/hr IV ONETIME FABRICE Labs: Laboratory Tests 10/29/20 10/29/20 Range/Units 09:40 09:40 WBC 5.50 (3.98-10.04) K/mm3 RBC 4.04 (3.98-5.22) M/mm3 Hgb 11.5 (11.2-15.7) gm/dl Hct 37.1 (34.1-44.9) % MCV 91.8 (79.4-94.8) fl MCH 28.5 (25.6-32.2) pg MCHC 31.0 L (32.2-35.5) g/dl RDW Std Deviation 46.0 (36.4-46.3) fL Plt Count 188 (182-369) K/mm3 MPV 10.0 (9.4-12.3) fl PT 39.4 H (9.7-12.0) SECONDS INR 3.78 Meds: Medications Generic Name Dose Route Start Last Admin Trade Name Freq PRN Reason Stop Dose Admin Tranexamic Acid 1,000 mg/ 110 mls @ 400 mls/hr 10/29/20 09:30 Sodium Chloride IV ONETIME FABRICE Discontinued Medications Generic Name Dose Route Start Last Admin Trade Name Freq PRN Reason Stop Dose Admin Acetaminophen 650 mg 10/29/20 12:02 Tylenol PO 10/29/20 12:03 NOW ONE Lidocaine/Epinephrine 10 ml 10/29/20 09:26 10/29/20 10:00 Xylocaine 1% With Epinephrine 1:100,000 INJECT 10/29/20 09:27 10 ml ONETIME ONE Administration Oxymetazoline HCl 2 ml 10/29/20 09:26 10/29/20 10:02 Nasal Decongestant [place] CLAUS 10/29/20 09:27 2 ml ONETIME ONE Administration - Re-Assessments/Exams Free Text/Narrative Re-Assessment/Exam: 10/29/20 11:24 I did pack the patient's nose twice with 2 mL Afrin, 2 mL lidocaine with epi, and 2 mL of TXA soaked on a 2 x 2 gauze. This however did not stop the bleeding. It appears the bleed is anterior and the did attempt to cauterize it however it is oozing too much. I did place an anterior nasal trumpet. The patient's INR is 3.78 today. At the clinic check yesterday it was 3.8 and it was recommended that she decrease her Coumadin dose yesterday to 1.25 mg and then resume her regular dose today. Her CBC was unremarkable today. Hemoglobin is stable at 11.5 10/29/20 12:18 Since nose has stopped bleeding with the anterior Rhino Rocket. I did add a little more air into the balloon. Patient will be discharged home with directions to take only 1.25 mg of Coumadin tonight and then resume her regular dose. She is to keep the Rhino Rocket in for 48 hours. Departure - Departure Time of Disposition: 12:20 Disposition: Home, Self-Care 01 Condition: Good Clinical Impression: Right-sided nosebleed - Discharge Information Prescriptions: Warfarin Sodium [Jantoven] 1.25 mg PO DAILY #1 tablet Referrals: Rcahel العلي MD [Primary Care Provider] - Forms: ED Department Discharge Additional Instructions: You are seen in the emergency department today with complaints of a nosebleed that would not stop despite applying pressure. We attempted to cauterize the nosebleed however it was still oozing too much to cauterize so we did insert a Rhino Rocket into your right naris. This will need to stay in place for 48 hours. You may return to the ER to have this removed or follow-up with your primary care provider. Hemoglobin level was 11.5 and this is within normal limits. Your INR today was 3.78 which is a little elevated. Recommend that your Coumadin dose be 1.25 mg today only and then resume your previous dose of Coumadin tomorrow. May resume all other home medications. Sepsis Event Note (ED) - Evaluation Sepsis Screening Result: No Definite Risk - Focused Exam Vital Signs: Vital Signs Temp Pulse Resp BP Pulse Ox 10/29/20 09:11 98.2 F 97 20 129/64 95 - My Orders Last 24 Hours: My Active Orders 10/29/20 09:30 Tranexamic Acid [Cyklokapron] 1,000 mg Sodium Chloride 0.9% [Normal Saline] 100 ml IV ONETIME - Assessment/Plan Last 24 Hours: My Active Orders 10/29/20 09:30 Tranexamic Acid [Cyklokapron] 1,000 mg Sodium Chloride 0.9% [Normal Saline] 100 ml IV ONETIME
[2020-10-29] MEDS ORDERED: Acetaminophen 325 MG Tab PO ONE (12:02)
== END 2020-10-29 12:31 | disposition home or self-care (01) ==
LOC: JD.ED 08:57
DX: R04.0 Epistaxis (principal); E78.00 Pure hypercholesterolemia, unspecified; I10 Essential (primary) hypertension; Z86.73 Personal history of transient ischemic attack (TIA), and cerebral infarction without residual deficits; Z79.899 Other long term (current) drug therapy; Z79.01 Long term (current) use of anticoagulants
CPT/HCPCS: 30903; 36415; 85027; 85610; 99283; A9270; 30901

== ENCOUNTER 2020-10-31 10:50 | Emergency (ER) | payer MEDICARE, MEDICAID | END 2020-10-31 11:12 | disposition home or self-care (01) | LOC: JD.ED 10:50 | DX: Z48.00 Encounter for change or removal of nonsurgical wound dressing (principal) | CPT/HCPCS: 99281 ==

== ENCOUNTER 2021-06-10 00:22 | Emergency (ER) | payer MEDICARE, MEDICAID ==
[2021-06-10 00:37] VITALS: BP 137/69; PULSE 85
--- NOTE | 2021-06-10 00:37 | EDM.PDOC ---
ED HPI GENERAL MEDICAL PROBLEM - General Chief Complaint: ENT Problem Stated Complaint: NOSE BLEED Time Seen by Provider: 06/10/21 00:39 - History of Present Illness INITIAL COMMENTS - FREE TEXT/NARRATIVE: 70-year-old female brought into the emergency room with a bloody nose. This started probably an hour prior to arrival. Patient has had lots of problems with bloody noses in the past in part because she is on Coumadin. She does not have high blood pressure. According to the nurse customer marketing assistant the patient picks her nose at times. She has had multiple Rhino Rocket's in the past. The bleeding is out of the right naris at this time. Nose Pain Score (Numeric/FACES): 3 - Related Data Allergies Allergy/AdvReac Type Severity Reaction Status Date / Time No Known Allergies Allergy Verified 10/29/20 09:15 Home Meds: Home Meds Alendronate [Fosamax] 70 mg PO ASDIRECTED 06/26/15 [History] Carboxymethylcellulose Sodium [Refresh Plus 0.5%] 1 drop EYEBOTH TID 06/26/15 [History] ClonazePAM [KlonoPIN] 0.5 mg PO TID 06/26/15 [History] Digoxin 125 mcg PO DAILY 06/26/15 [History] Fluticasone [place]/ 50 Mcg. 2 spray IN DAILY 06/26/15 [History] Hydrocortisone [Hydrocortisone 1% Crm] 1 applic TOP DAILY 06/26/15 [History] Metronidazole Gel 0.075% . 1 applic TOP BID PRN 06/26/15 [History] Multivit-Min/FA/Lycopen/Lutein [Certavite Senior Tablet] 1 tab PO DAILY 06/26/15 [History] Sertraline [Zoloft] 100 mg PO DAILY 06/26/15 [History] atorvaSTATin [Lipitor] 40 mg PO DAILY 06/26/15 [History] lamoTRIgine 25 mg PO BID 06/26/15 [History] risperiDONE 1 mg PO BEDTIME 06/26/15 [History] risperiDONE 1 tab PO DAILY 06/26/15 [History] Aspirin [Halfprin] 81 mg PO BRK 30 Days tab.ec 06/27/15 [Rx] Ondansetron [Zofran ODT] 1 tab PO Q8H PRN #10 tab.dis 01/30/18 [Rx] Pantoprazole Sodium [Protonix] 40 mg PO DAILY 02/14/18 [History] Calcium Carbonate [Calcium] 600 mg PO BID 02/06/19 [History] Cholecalciferol (Vitamin D3) [Vitamin D3] 1,000 unit PO BID 02/06/19 [History] Hypromellose [Systane Gel] 10 gm OP BEDTIME 02/06/19 [History] Potassium Chloride 20 meq PO DAILY 02/06/19 [History] Warfarin Sodium [Jantoven] 2.5 mg PO BEDTIME 02/06/19 [History] Warfarin Sodium [Jantoven] 1.25 mg PO DAILY #1 tablet 10/29/20 [Rx] risperiDONE [Risperidone] 1 mg PO DAILY 10/29/20 [History] Past Medical History HEENT History: Reports: Epistaxis, Hard of Hearing, Impaired Vision Cardiovascular History: Reports: High Cholesterol, Hypertension Other Cardiovascular History: Mitral valve replacement Respiratory History: Reports: None Gastrointestinal History: Reports: Other (See Below) Other Gastrointestinal History: stomach ulcer Genitourinary History: Reports: None [employer] History: Reports: None Musculoskeletal History: Reports: Osteoporosis Neurological History: Reports: CVA, TIA Other Neuro History: ischemic Psychiatric History: Reports: Anxiety, Depression, Other (See Below) Other Psychiatric History: paranoia, mild intellectual disabilities, psychotic disorder Endocrine/Metabolic History: Reports: None Hematologic History: Reports: None Immunologic History: Reports: None Oncologic (Cancer) History: Reports: None Other Dermatologic History: ulcer to the left inner ankle, [employer] Hx - Infectious Disease History Infectious Disease History: Reports: None - Past Surgical History Cardiovascular Surgical History: Reports: Valve Replacement Female Surgical History: Reports: None Social & Family History - Family History Family Medical History: No Pertinent Family History - Caffeine Use Caffeine Use: Reports: None - Living Situation & Occupation Living situation: Reports: , Other ([facility]) ED ROS ENT - Review of Systems Review Of Systems: See Below Constitutional: Reports: No Symptoms HEENT: Reports: Nosebleed. Denies: No Symptoms Respiratory: Reports: No Symptoms Cardiovascular: Reports: No Symptoms GI/Abdominal: Reports: No Symptoms : Reports: No Symptoms Musculoskeletal: Reports: No Symptoms ED EXAM, ENT - Physical Exam Exam: See Below Exam Limited By: No Limitations General Appearance: Alert, No Apparent Distress Eye Exam: Bilateral Eye: Normal Inspection Ears: Normal External Exam, Normal Canal, Hearing Grossly Normal, Normal TMs Nose: Other (Sniffing and bleeding from the right nares appears to be anterior but I cannot isolate exactly where it is coming from) Head: Atraumatic, Normocephalic Neck: Normal Inspection, Supple, Non-Tender, Full Range of Motion. No: Lymphadenopathy (L), Lymphadenopathy (R) Respiratory/Chest: No Respiratory Distress, Lungs Clear, Normal Breath Sounds Cardiovascular: Regular Rate, Rhythm, Other (Heart click) GI/Abdominal: Normal Bowel Sounds, Soft, Non-Tender Course - Vital Signs Last Recorded V/S: Last Vital Signs Temp 36.4 C 06/10/21 00:34 Pulse 85 06/10/21 00:34 Resp 20 06/10/21 00:34 BP 137/69 06/10/21 00:34 Pulse Ox 94 L 06/10/21 00:34 - Orders/Labs/Meds Orders: Active Orders 24 hr Category Date Time Status Tranexamic Acid [Cyklokapron] Med 06/10/21 00:45 Active 1,000 mg TOP ONETIME Medication Orders Tranexamic Acid (Tranexamic Acid 1,000 Mg/10 Ml Amp) 1,000 mg TOP ONETIME FABRICE Last Admin: 06/10/21 00:49 Dose: 1,000 mg Documented by: KAI Labs: Laboratory Tests 06/10/21 06/10/21 06/10/21 Range/Units 00:53 00:53 00:53 WBC 6.41 (3.98-10.04) K/mm3 RBC 4.20 (3.98-5.22) M/mm3 Hgb 11.7 (11.2-15.7) gm/dl Hct 37.5 (34.1-44.9) % MCV 89.3 (79.4-94.8) fl MCH 27.9 (25.6-32.2) pg MCHC 31.2 L (32.2-35.5) g/dl RDW Std Deviation 48.7 H (36.4-46.3) fL Plt Count 202 (182-369) K/mm3 MPV 9.9 (9.4-12.3) fl Neut % (Auto) 72.5 H (34.0-71.1) % Lymph % (Auto) 16.2 L (19.3-51.7) % [place] % (Auto) 9.7 (4.7-12.5) % Eos % (Auto) 1.2 (0.7-5.8) Baso % (Auto) 0.2 (0.1-1.2) % Neut # (Auto) 4.65 (1.56-6.13) K/mm3 Lymph # (Auto) 1.04 L (1.18-3.74) K/mm3 [place] # (Auto) 0.62 H (0.24-0.36) K/mm3 Eos # (Auto) 0.08 (0.04-0.36) K/mm3 Baso # (Auto) 0.01 (0.01-0.08) K/mm3 PT 40.7 H (9.7-12.0) SECONDS INR 3.86 APTT 50.1 H (21.7-31.4) SECONDS Sodium 140 (136-145) mEq/L Potassium 4.0 (3.5-5.1) mEq/L Chloride 104 (98-107) mEq/L Carbon Dioxide 31 (21-32) mEq/L Anion Gap 9.0 (5-15) BUN 11 (7-18) mg/dL Creatinine 1.0 (0.55-1.02) mg/dL Est Cr Clr Drug Dosing 41.99 mL/min Estimated GFR (MDRD) 55 (>60) mL/min BUN/Creatinine Ratio 11.0 L (14-18) Glucose 117 H (70-99) mg/dL Calcium 9.4 (8.5-10.1) mg/dL Total Bilirubin 0.5 (0.2-1.0) mg/dL AST 28 (15-37) U/L ALT 20 (14-59) U/L Alkaline Phosphatase 56 (46-116) U/L Total Protein 8.2 (6.4-8.2) g/dl Albumin 3.3 L (3.4-5.0) g/dl Globulin 4.9 gm/dL Albumin/Globulin Ratio 0.7 L (1-2) Meds: Medications Generic Name Dose Route Start Last Admin Trade Name Freq PRN Reason Stop Dose Admin Tranexamic Acid 1,000 mg 06/10/21 00:45 06/10/21 00:49 Tranexamic Acid 1,000 Mg/10 Ml Amp TOP 1,000 mg ONETIME FABRICE Administration Discontinued Medications Generic Name Dose Route Start Last Admin Trade Name Susan PRN Reason Stop Dose Admin Lidocaine HCl 10 ml 06/10/21 00:44 06/10/21 00:50 Lidocaine 1% 10 Ml Mdv .XX 06/10/21 00:45 10 ml ONETIME ONE Administration Oxymetazoline HCl 1 ml 06/10/21 00:42 06/10/21 00:49 Oxymetazoline 0.05% Nasal [place] 30 Ml Bottle CLAUS 06/10/21 00:43 1 ml ONETIME ONE Administration - Re-Assessments/Exams Free Text/Narrative Re-Assessment/Exam: 06/10/21 02:34 I tried multiple attempts to get her to clear the clots by blowing her nose had a suboptimal effort. Tried direct pressure but this did not seem to help. I mixed up 2 cc of TXA with 2 cc of 1% lidocaine with 2 cc of Afrin. Saturated 2 cotton balls with this and placed him in the right naris let it sit there for 40 minutes. I just removed these packs and the patient is not bleeding currently we will continue to observe. Her INR is elevated at 3.84 06/10/21 03:14 The patient has been up and moving around without any bleeding she is gone to the commode. At this point we will get an attempt discharging her home. Departure - Departure Time of Disposition: 03:15 Disposition: Home, Self-Care 01 Clinical Impression: Epistaxis, Warfarin-induced coagulopathy - Discharge Information Referrals: Mali Valera MD [Primary Care Provider] - Forms: ED Department Discharge Additional Instructions: Return to the emergency room with any questions problems or worsening symptoms. Call the Coumadin clinic and inform them the INR was 3.86 this morning Use K-Y jelly underneath the nose every couple hours while awake.. Sepsis Event Note (ED) - Evaluation Sepsis Screening Result: No Definite Risk - Focused Exam Vital Signs: Vital Signs Temp Pulse Resp BP Pulse Ox 06/10/21 00:34 36.4 C 85 20 137/69 94 L - My Orders Last 24 Hours: My Active Orders 06/10/21 00:45 Tranexamic Acid [Cyklokapron] 1,000 mg TOP ONETIME - Assessment/Plan Last 24 Hours: My Active Orders 06/10/21 00:45 Tranexamic Acid [Cyklokapron] 1,000 mg TOP ONETIME
[2021-06-10] MEDS ORDERED: Oxymetazoline 0.05% Nasal Spray 30 ML Bottle NAS ONE (00:42)
[2021-06-10] MEDS ORDERED: Lidocaine 1% 10 ML MDV ONE (00:44)
== END 2021-06-10 03:30 | disposition home or self-care (01) ==
LOC: JD.ED 00:22
DX: R04.0 Epistaxis (principal); D68.9 Coagulation defect, unspecified; E78.00 Pure hypercholesterolemia, unspecified; I10 Essential (primary) hypertension; Z86.73 Personal history of transient ischemic attack (TIA), and cerebral infarction without residual deficits; Z79.82 Long term (current) use of aspirin; Z79.01 Long term (current) use of anticoagulants
CPT/HCPCS: 36415; 80053; 85025; 85610; 85730; 99283; A9270; 30901

== ENCOUNTER 2023-01-26 08:10 | Inpatient (IN) | payer MEDICARE, MEDICAID ==
[2023-01-26] MEDS ORDERED: Sodium Chloride 0.9% 10 ML Syringe FLUSH PRN (10:33)
[2023-01-26] MEDS ORDERED: Iopamidol 612 MG/ML 100 ML Bottle IVPUSH ONE (10:33)
[2023-01-26] MEDS ORDERED: cefTRIAXone 500 MG Vial IVPUSH ONE (12:19)
[2023-01-26] MEDS ORDERED: cefTRIAXone 1 GM in Sodium Chloride 0.9% 100 ML IV ONE (12:30)
[2023-01-26] MEDS ORDERED: Sodium Chloride 0.9% 1,000 ML IV SCH (12:30)
[2023-01-26] MEDS ORDERED: Ondansetron 4 MG/2 ML SDV IVPUSH ONE (12:59)
[2023-01-26] MEDS ORDERED: Factor IX Complex Human 500 UNIT VIAL IVPUSH STA ×2 (14:59→15:15)
[2023-01-26] MEDS ORDERED: Phytonadione 10 MG in Sodium Chloride 0.9% 50 ML IV ONE (15:11)
[2023-01-26] MEDS ORDERED: Ondansetron 4 MG Tab.DIS PO PRN (15:35)
[2023-01-26] MEDS ORDERED: METRONIDAZOLE TOP PRN (15:35)
[2023-01-26] MEDS: Cholecalciferol (Vitamin D3) 25 MCG Tab PO SCH (20:22)
[2023-01-26] MEDS: Fluticasone NASAL Spray 16 GM Bottle NAS SCH (20:23)
[2023-01-26] MEDS: Carboxymethylcellulose Sodium 1% Ophth Gel 15 ML Bottle EYEBOTH SCH (20:24)
[2023-01-26] MEDS: Sodium Chloride 0.65% Nasal Spray 45 ML Bottle NASRT SCH (20:24)
[2023-01-26] MEDS ORDERED: HYPROMELLOSE OP SCH (21:00)
[2023-01-26] MEDS ORDERED: Non-Formulary Medication 1 Each (Risperidone [Risperidone] 2 MG Tablet) PO SCH (21:00)
[2023-01-26] MEDS ORDERED: Latanoprost 0.005% Ophth Soln 2.5 ML Bottle EYEBOTH SCH (21:00)
[2023-01-26] MEDS ORDERED: LAMOTRIGINE 25 MG PO SCH (21:00)
[2023-01-26] MEDS ORDERED: CARBOXYMETHYLCELLULOSE SODIUM EYEBOTH SCH (21:00)
[2023-01-26] MEDS ORDERED: ClonazePAM 1 MG Tab PO SCH (21:00)
[2023-01-26] MEDS ORDERED: Digoxin 125 MCG Tab PO SCH (21:00)
[2023-01-26] MEDS ORDERED: risperiDONE 1 MG Tab PO SCH (21:00)
[2023-01-26] MEDS ORDERED: Pantoprazole 40 MG Tab.CR PO SCH (21:00)
[2023-01-26] MEDS ORDERED: Donepezil 10 MG Tab PO SCH (21:00)
[2023-01-27 08:23] VITALS: BP 95/71; PULSE 73
[2023-01-27] MEDS: Cholecalciferol (Vitamin D3) 25 MCG Tab PO SCH (08:54)
[2023-01-27] MEDS: ClonazePAM 0.5 MG Tab PO SCH ×2 (08:54→14:03)
[2023-01-27] MEDS: Carboxymethylcellulose Sodium 1% Ophth Gel 15 ML Bottle EYEBOTH SCH ×2 (08:55→14:04)
[2023-01-27] MEDS ORDERED: Multivitamin Tab PO SCH (09:00)
[2023-01-27] MEDS ORDERED: Potassium Chloride 20 MEQ Tab.ER PO SCH (09:00)
[2023-01-27] MEDS ORDERED: Sertraline 50 MG Tab PO SCH (09:00)
[2023-01-27] MEDS ORDERED: risperiDONE 1 MG Tab PO SCH ×2 (09:00→12:00)
[2023-01-27] MEDS ORDERED: Non-Formulary Medication 1 Each (Triamcinolone Acetonide [Nasacort] 10.8 ML Spray) INH SCH (09:00)
[2023-01-27] MEDS ORDERED: FLUTICASONE IN SCH (09:00)
[2023-01-27] MEDS ORDERED: Hydrocortisone 1% Crm 30 GM Tube TOP SCH (09:00)
[2023-01-27] MEDS: Sodium Chloride 0.65% Nasal Spray 45 ML Bottle NASRT SCH (09:05)
[2023-01-27] MEDS: Fluticasone NASAL Spray 16 GM Bottle NAS SCH (09:06)
[2023-01-27] MEDS ORDERED: risperiDONE 0.5 MG Tab PO SCH (12:00)
[2023-01-27] MEDS ORDERED: Enoxaparin 60 MG/0.6 ML Syringe SUBCUT SCH (13:00)
[2023-01-27] MEDS ORDERED: Mineral Oil/White Petrolatum Crm 113 GM Jar TOP SCH (21:00)
== END 2023-01-27 15:58 | DRG 378 ==
LOC: JD.ED 08:10 → JD.MS 15:14
PROVIDERS: ADMIT Hospitalist; ATTEND Hospitalist
PROC: 30283B1 Transfusion of Nonautologous 4-Factor Prothrombin Complex Concentrate into Vein, Percutaneous Approach (ICD-10-PCS; principal; 2023-01-26)
DX: K92.2 Gastrointestinal hemorrhage, unspecified (principal); D68.9 Coagulation defect, unspecified; R62.50 Unspecified lack of expected normal physiological development in childhood; I48.91 Unspecified atrial fibrillation; E78.5 Hyperlipidemia, unspecified; F41.9 Anxiety disorder, unspecified; F32.A Depression, unspecified; K52.9 Noninfective gastroenteritis and colitis, unspecified; H91.90 Unspecified hearing loss, unspecified ear; H54.7 Unspecified visual loss; E78.00 Pure hypercholesterolemia, unspecified; I10 Essential (primary) hypertension; H40.9 Unspecified glaucoma; M81.0 Age-related osteoporosis without current pathological fracture; F03.90 Unspecified dementia, unspecified severity, without behavioral disturbance, psychotic disturbance, mood disturbance, and anxiety; Z95.2 Presence of prosthetic heart valve; Z79.82 Long term (current) use of aspirin; Z79.01 Long term (current) use of anticoagulants; Z79.899 Other long term (current) drug therapy; Z86.73 Personal history of transient ischemic attack (TIA), and cerebral infarction without residual deficits; Z91.018 Allergy to other foods; R06.02 Shortness of breath
CPT/HCPCS: 36415; 74178; 80053; 85025; 85610; 86850; 86900; 86901; 96361; 96365; 96372; 96375; 99285; J0696; J2405; J3490 ×2; J7030; Q9967; 80048; 94760; 96367; 99222; 99239; 99284; A9270-GY; J1650; J3430; J7168

== ENCOUNTER 2023-04-21 08:56 | Day surgery (SDC) | payer MEDICAID, MEDICARE ==
[~2023-04-21 08:56] MED LIST: Lactated Ringers 1,000 ML IV SCH; Sodium Chloride 0.9% 10 ML Syringe FLUSH PRN; Sodium Chloride 0.9% 10 ML Syringe FLUSH SCH
[2023-04-21 10:28] LABS: INR 1.17; PROTHROMBIN TIME 12.4 SECONDS (9.7-12.0)
[2023-04-21 10:29] LABS: PTT,PARTIAL THROMBOPLSTIN TIME 29.9 SECONDS (21.7-31.4)
[2023-04-21] MEDS ORDERED: Propofol 200 MG/20 ML SDV ONE ×2 (12:29→13:06)
[2023-04-21] MEDS ORDERED: Lidocaine 1% 4 ML ONE (12:30)
[2023-04-21 15:11] VITALS: BP 129/53; PULSE 70
== END 2023-04-21 14:27 | disposition home or self-care (01) ==
LOC: JD.SDS 08:56
PROVIDERS: ATTEND Surgery
DX: K29.51 Unspecified chronic gastritis with bleeding (principal); K31.89 Other diseases of stomach and duodenum; K21.9 Gastro-esophageal reflux disease without esophagitis; K31.7 Polyp of stomach and duodenum; K44.9 Diaphragmatic hernia without obstruction or gangrene; Q43.8 Other specified congenital malformations of intestine; Z53.09 Procedure and treatment not carried out because of other contraindication; K64.9 Unspecified hemorrhoids; I48.91 Unspecified atrial fibrillation; M81.0 Age-related osteoporosis without current pathological fracture; I11.0 Hypertensive heart disease with heart failure; I50.9 Heart failure, unspecified; E78.00 Pure hypercholesterolemia, unspecified; F41.1 Generalized anxiety disorder; Z79.01 Long term (current) use of anticoagulants; Z90.49 Acquired absence of other specified parts of digestive tract; Z98.51 Tubal ligation status; Z91.018 Allergy to other foods
CPT/HCPCS: 36415; 43239; 45378; 85610; 85730; J2704; J7120; 00813; 99100; J3490

== ENCOUNTER 2023-11-06 09:05 | Emergency (ER) | payer MEDICARE, MEDICAID ==
[2023-11-06 11:31] VITALS: BP 125/55; PULSE 65
== END 2023-11-06 11:28 | disposition home or self-care (01) ==
LOC: JD.ED 09:05
DX: H92.23 Otorrhagia, bilateral (principal); S00.412A Abrasion of left ear, initial encounter; S00.411A Abrasion of right ear, initial encounter; I10 Essential (primary) hypertension; E78.00 Pure hypercholesterolemia, unspecified; D68.32 Hemorrhagic disorder due to extrinsic circulating anticoagulants; Z91.018 Allergy to other foods; Z91.048 Other nonmedicinal substance allergy status; Z79.899 Other long term (current) drug therapy
CPT/HCPCS: 99282; C9046